=== PATIENT | female | born 1985 | race African-American/Black ===

== ENCOUNTER 2016-05-26 19:43 | Emergency (ER) | payer OTHER, MEDICAID ==
[2016-05-26] MEDS ORDERED: OXYCODONE-ACETAMINOPHEN 5-325 MG TABLET PO ONE (19:52)
--- NOTE | 2016-05-26 19:55 | ER Document Report ---
ED Medical Screen (RME) - General Stated Complaint: LEFT WRIST BURN Notes: 31 yo female c/o burn to left wrist from hot tea. + erythema and sloughing to dorsal wrist TRAVEL OUTSIDE OF THE [place] IN LAST 30 DAYS: No - Related Data Allergies/Adverse Reactions: diphenhydramine HCl [From Benadryl] Adverse Reaction (Verified 01/09/16 12:29) increses reaction of what it was taken for Bee stings Allergy (Severe, Uncoded 02/20/16 12:13) Hives, swelling cherries Allergy (Uncoded 02/20/16 12:13) hives/itch, throat closes Past Medical History - Social History Family history: Reviewed & Not Pertinent - Past Medical History Cardiac Medical History: Denies: Hx Coronary Artery Disease, Hx Heart Attack, Hx Hypertension - Low Pulmonary Medical History: Denies: Hx Asthma, Hx Bronchitis, Hx COPD, Hx Pneumonia Neurological Medical History: Reports: Hx Migraine. Denies: Hx Cerebrovascular Accident, Hx Seizures Renal/ Medical History: Reports: Hx Ovarian Cysts Musculoskeltal Medical History: Denies Hx Arthritis, Reports Hx Fibromyalgia Past Surgical History: Reports: Hx Breast Surgery - L lumpectomy, Hx Section - x 2, Hx Cholecystectomy, Hx Gynecologic Surgery - LEEPx4, Hx Oral Surgery - wisdom teeth, Hx Tonsillectomy, Hx Tubal Ligation - Immunizations Immunizations up to date: Yes Hx Diphtheria, Pertussis, Tetanus Vaccination: Yes
[2016-05-26] MEDS ORDERED: MORPHINE SULFATE 10 MG/ML INJ IM ONE (21:03)
[2016-05-26] MEDS ORDERED: DIPH/PERTUSS(ACELL)/TETANUS VAC/PF 0.5 ML SYR (>=10YO) IM ONE (21:03)
[2016-05-26] MEDS ORDERED: SILVER SULFADIAZINE 1% CREAM 25 GM TP ONE (21:03)
--- NOTE | 2016-05-26 21:03 | ER Document Report ---
ED Burn/Smoke/Toxic Fumes - General Chief Complaint: Burn Stated Complaint: LEFT WRIST BURN Time seen by provider: 21:03 Mode of Arrival: Ambulatory Information source: Patient TRAVEL OUTSIDE OF THE [place] 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, when it came loose causing hot liquid to spill on her left wrist, she denies injury or pain elsewhere, last tetanus shot is unknown, patient denies any numbness or tingling to the extremity distally - Related Data Allergies/Adverse Reactions: diphenhydramine HCl [From Benadryl] Adverse Reaction (Verified 01/09/16 12:29) increses reaction of what it was taken for Bee stings Allergy (Severe, Uncoded 02/20/16 12:13) Hives, swelling cherries Allergy (Uncoded 02/20/16 12:13) hives/itch, throat closes Past Medical History - General Information source: Patient - Social History Smoking Status: Unknown if Ever Smoked Family History: Reviewed & Not Pertinent, Malignancy - Strong family history breast cancer Patient has suicidal ideation: No Patient has homicidal ideation: No - Past Medical History Cardiac Medical History: Denies: Hx Coronary Artery Disease, Hx Heart Attack, Hx Hypertension - Low Pulmonary Medical History: Denies: Hx Asthma, Hx Bronchitis, Hx COPD, Hx Pneumonia Neurological Medical History: Reports: Hx Migraine. Denies: Hx Cerebrovascular Accident, Hx Seizures Renal/ Medical History: Reports: Hx Ovarian Cysts. Denies: Hx Peritoneal Dialysis Musculoskeltal Medical History: Denies Hx Arthritis, Reports Hx Fibromyalgia Past Surgical History: Reports: Hx Breast Surgery - L lumpectomy, Hx Section - x 2, Hx Cholecystectomy, Hx Gynecologic Surgery - LEEPx4, Hx Oral Surgery - wisdom teeth, Hx Tonsillectomy, Hx Tubal Ligation - Immunizations Immunizations up to date: Yes Hx Diphtheria, Pertussis, Tetanus Vaccination: Yes Review of Systems - Review of Systems Constitutional: No symptoms reported EENT: No symptoms reported Cardiovascular: No symptoms reported Respiratory: No symptoms reported Gastrointestinal: No symptoms reported Genitourinary: No symptoms reported Female Genitourinary: No symptoms reported Musculoskeletal: No symptoms reported Skin: See HPI Hematologic/Lymphatic: No symptoms reported Neurological/Psychological: No symptoms reported -: Yes All other systems reviewed and negative Physical Exam - Vital signs Vitals: Temp Pulse Resp BP Pulse Ox 98.0 F 104 H 19 139/103 H 100 05/26/16 20:07 05/26/16 20:07 05/26/16 20:07 05/26/16 20:07 05/26/16 20:07 Interpretation: Normal - Notes Notes: - General General appearance: Appears well, Alert In distress: None - HEENT Head: Normocephalic, Atraumatic Eyes: Normal Conjunctiva: Normal Extraocular movements intact: Yes Eyelashes: Normal Pupils: PERRL - Respiratory Respiratory status: No respiratory distress - Cardiovascular Rhythm: Regular - Abdominal Inspection: Normal - Back Back: Normal - Extremities General upper extremity: Left wrist with first degree cherry to the dorsal surface with slight extension to the ventral surface, 2+ radial pulses, distal sensation and motor is intact, no decreased range of motion, patient does have a 3 cm area of blistering over the central dorsal wrist, consistent with a second-degree burn General lower extremity: Normal inspection - Neurological Neuro grossly intact: Yes Orientation: AAOx4 [place] Coma Scale Eye Opening: Spontaneous Shae Coma Scale Verbal: Oriented [place] Coma Scale Motor: Obeys Commands Shae Coma Scale Total: 15 - Psychological Associated symptoms: Normal affect, Normal mood - Skin Skin Temperature: Warm Skin Moisture: Dry Skin Color: Normal Course - Re-evaluation Re-evalutation: 05/26/16 21:47 Patient reports adequate pain relief, she was provided with Silvadene cream and pain medication to go as well as wound care instructions, advised to follow-up at [facility] burn [facility] clinic within the next 2-3 days, or return if symptoms worsen , patient acknowledges understanding and agreement with this plan 05/27/16 03:26 - Vital Signs Vital signs: Temp Pulse Resp BP Pulse Ox 97.9 F 81 17 126/74 H 99 05/26/16 22:38 05/26/16 22:38 05/26/16 22:38 05/26/16 22:38 05/26/16 22:38 Discharge - Discharge Clinical Impression: Second degree burn of wrist First degree burn of wrist Qualifiers: Encounter type: initial encounter Laterality: left Qualified Code(s): T23.172A - Burn of first degree of left wrist, initial encounter Condition: Stable Disposition: HOME, SELF-CARE Instructions: Cherry ([facility]), Oral Narcotic Medication ([facility]), Silvadene Cream ([facility] ), Soap Cleansing ([facility]), Tetanus Immunization Given ([facility]) Additional Instructions: Follow-up with the burn care clinic at [facility] in the next 1-2 days. Return to the emergency room immediately if symptoms worsen or any additional concerns. Gently rinse with warm water and soap twice daily and apply Silvadene cream 2-3 times daily. Prescriptions: Oxycodone HCl/Acetaminophen [Percocet 5-325 mg Tablet] 1 - 2 tab PO ASDIR PRN # 20 tablet PRN Reason: Silver Sulfadiazine [Silvadene 1% Cream 50 gm Tube] 1 applic TP BID #50 grams Forms: Return to Work Referrals: DONNA GUTIERREZ MD [Primary Care Provider] - Follow up as needed
[2016-05-26] MEDS ORDERED: HYDROCODONE/ACETAMINOPHEN 5-325 MG 6 TAB/DSPK PO PRN (21:49)
[2016-05-26 22:53] VITALS: BP 126/74
== END 2016-05-26 22:38 | disposition home or self-care (01) ==
LOC: ER 19:43
DX: T23.272A Burn of second degree of left wrist, initial encounter (principal); T31.0 Burns involving less than 10% of body surface; X12.XXXA Contact with other hot fluids, initial encounter; Y93.89 Activity, other specified; Y99.0 Civilian activity done for income or pay; Z91.030 Bee allergy status; Z91.018 Allergy to other foods
CPT/HCPCS: 99283; 96372; 90471; 90715; J2270

== ENCOUNTER 2016-10-28 15:51 | Emergency (ER) | payer MEDICAID, OTHER ==
[2016-10-28 16:06] VITALS: BP 127/76
[2016-10-28] MEDS ORDERED: ALBUTEROL SULFATE 0.083% NEB 2.5 MG/3 ML AMPUL NEB ONE ×2 (17:00→18:34)
--- NOTE | 2016-10-28 17:28 | RADIOLOGY REPORT (SQ) ---
EXAM DESCRIPTION: CHEST PA/LAT COMPLETED DATE/TIME: 10/28/2016 5:09 pm REASON FOR STUDY: cough COMPARISON: 04/16/2015 EXAM PARAMETERS: NUMBER OF VIEWS: two views TECHNIQUE: Digital Frontal and Lateral radiographic views of the chest acquired. RADIATION DOSE: NA LIMITATIONS: none FINDINGS: LUNGS AND PLEURA: No opacities, masses or pneumothorax. No pleural effusion. MEDIASTINUM AND HILAR STRUCTURES: No masses or contour abnormalities. HEART AND VASCULAR STRUCTURES: Heart normal size. No evidence for failure. BONES: No acute findings. HARDWARE: None in the chest. OTHER: No other significant finding. IMPRESSION: NO SIGNIFICANT RADIOGRAPHIC FINDING IN THE CHEST. TECHNICAL DOCUMENTATION: JOB ID: [id number] [employer]- All Rights Reserved
[2016-10-28] MEDS ORDERED: ALBUTEROL SULFATE HFA (90 MCG/PUFF) 8 GM MDI (1 MDI/ER DISP) IH PRN (19:38)
--- NOTE | 2016-10-28 19:38 | ER Document Report ---
HPI - HPI Patient complains to provider of: cough Onset: Last week Onset/Duration: Gradual Pain Level: Denies Context: patient is a 31 year old female with cough. d/g with URI on augmentin and prednisone since tuesday, afebrile Associated Symptoms: Headache, Hoarseness, Sinus pain/drainage, Sore throat. denies: Chills, Productive cough, Fever, Hurts to breath, Nausea, Vomiting, Shortness of breath Exacerbated by: Coughing Relieved by: Remaining still - REPRODUCTIVE Reproductive: DENIES: : - DERM Skin Color: Normal Past Medical History - Social History Smoking Status: Current Every Day Smoker Chew tobacco use (# tins/day): No Frequency of alcohol use: None Drug Abuse: None Family History: Reviewed & Not Pertinent, Malignancy - Strong family history breast cancer Patient has suicidal ideation: No Patient has homicidal ideation: No - Past Medical History Cardiac Medical History: Denies: Hx Coronary Artery Disease, Hx Heart Attack, Hx Hypertension - Low Pulmonary Medical History: Denies: Hx Asthma, Hx Bronchitis, Hx COPD, Hx Pneumonia Neurological Medical History: Reports: Hx Migraine. Denies: Hx Cerebrovascular Accident, Hx Seizures Renal/ Medical History: Reports: Hx Ovarian Cysts. Denies: Hx Peritoneal Dialysis Musculoskeltal Medical History: Denies Hx Arthritis, Reports Hx Fibromyalgia Past Surgical History: Reports: Hx Breast Surgery - L lumpectomy, Hx Section - x 2, Hx Cholecystectomy, Hx Gynecologic Surgery - LEEPx4, Hx Oral Surgery - wisdom teeth, Hx Tonsillectomy, Hx Tubal Ligation - Immunizations Immunizations up to date: Yes Hx Diphtheria, Pertussis, Tetanus Vaccination: Yes - 2017 Vertical Provider Document - CONSTITUTIONAL Agree With Documented VS: Yes Exam Limitations: No Limitations General Appearance: WD/WN, No Apparent Distress Notes: PHYSICAL EXAM GENERAL: Alert, interacts well. HEAD: Normocephalic, atraumatic. EYES: Pupils equal, round, and reactive to light. Extraocular movements intact. ENT: Oral mucosa moist, tongue midline. NECK: Full range of motion. Supple. Trachea midline. LUNGS: Expiratory wheezes noted bilaterally without rales, or rhonchi. No respiratory distress. HEART: Regular rate and rhythm. No murmurs, gallops, or rubs. ABDOMEN: Soft, nondistended, nontender. No guarding, rebound, or rigidity.. Bowel sounds present in all 4 quadrants. EXTREMITIES: Moves all 4 extremities spontaneously. No edema, radial and dorsalis pedis pulses 2/4 bilaterally. No cyanosis. NEUROLOGICAL: Alert and oriented x4. Normal speech. PSYCH: Normal affect, normal mood. SKIN: Warm, dry, normal turgor. No rashes or lesions noted. - INFECTION CONTROL TRAVEL OUTSIDE OF THE [place] IN LAST 30 DAYS: No - RESPIRATORY O2 Sat by Pulse Oximetry: 98 Course - Re-evaluation Re-evalutation: 10/28/16 22:23 Is a 31-year-old female hemodynamic stable, no acute distress and afebrile. Patient responded well to breathing treatments with markedly pain in her wheezing and shortness of breath. Patient discharged home on albuterol inhaler and discussion for strict return precautions. Patient expressed understanding and stable for discharge home - Vital Signs Vital signs: Temp Pulse Resp BP Pulse Ox 98.5 F 96 20 127/76 H 98 10/28/16 15:59 10/28/16 15:59 10/28/16 15:59 10/28/16 15:59 10/28/16 15:59 - Diagnostic Test Radiology reviewed: Image reviewed, Reports reviewed Discharge - Discharge Clinical Impression: Bronchitis Condition: Good Disposition: HOME, SELF-CARE Instructions: Bronchitis ([facility]) Additional Instructions: Follow up with your Primary care provider next week. Forms: Return to Work
== END 2016-10-28 20:01 | disposition home or self-care (01) ==
LOC: ER 15:51
DX: J40 Bronchitis, not specified as acute or chronic (principal); J06.9 Acute upper respiratory infection, unspecified; R05 Cough; R51 Headache; R49.0 Dysphonia; R06.2 Wheezing; R06.02 Shortness of breath; J02.9 Acute pharyngitis, unspecified; J34.89 Other specified disorders of nose and nasal sinuses; F17.200 Nicotine dependence, unspecified, uncomplicated
CPT/HCPCS: 94640 ×2; 99283; 71020; J3490

== ENCOUNTER 2017-02-17 21:12 | Emergency (ER) | payer MEDICAID ==
[2017-02-17 22:55] LABS: APPEARANCE,URINE CLEAR; BILIRUBIN,URINE NEGATIVE (NEGATIVE); GLUCOSE, URINE NEGATIVE (NEGATIVE); KETONES,URINE TRACE mg/dL (NEGATIVE); LEUKOCYTE ESTERASE,URINE NEGATIVE (NEGATIVE); NITRITE,URINE NEGATIVE (NEGATIVE); PROTEIN,URINE NEGATIVE (NEGATIVE); URINE SPECIFIC GRAVITY 1.003; UROBILINOGEN,URINE NEGATIVE mg/dL (<2.0)
[2017-02-17] MEDS ORDERED: LORAZEPAM 0.5 MG TABLET PO ONE (23:14)
--- NOTE | 2017-02-17 23:14 | ER Document Report ---
ED Syncope and Near Syncope - General Chief Complaint: Syncope Stated Complaint: PASSED OUT Time Seen by Provider: 02/17/17 22:58 Notes: Patient is a 32-year-old female comes emergency department for chief complaint of syncope. She states that she was in the emergency department and she was told by her significant other that he has HIV, she states that she passed out and woke up being supported by her friends. Friends are at bedside, they states she did not hit her head. Patient states she has passed out before. Patient states that she feels fine except that she feels upset. She denies SI or HI TRAVEL OUTSIDE OF THE [place] IN LAST 30 DAYS: No - Related Data Allergies/Adverse Reactions: diphenhydramine HCl [From Benadryl] Adverse Reaction (Verified 10/28/16 16:03) increses reaction of what it was taken for Bee stings Allergy (Severe, Uncoded 02/20/16 12:13) Hives, swelling cherries Allergy (Uncoded 02/20/16 12:13) hives/itch, throat closes Past Medical History - General Information source: Patient - Social History Smoking Status: Never Smoker Frequency of alcohol use: None Drug Abuse: None Lives with: Family Family History: Reviewed & Not Pertinent, Malignancy - Strong family history breast cancer Patient has suicidal ideation: No Patient has homicidal ideation: No - Past Medical History Cardiac Medical History: Denies: Hx Coronary Artery Disease, Hx Heart Attack, Hx Hypertension - Low Pulmonary Medical History: Denies: Hx Asthma, Hx Bronchitis, Hx COPD, Hx Pneumonia Neurological Medical History: Reports: Hx Migraine. Denies: Hx Cerebrovascular Accident, Hx Seizures Renal/ Medical History: Reports: Hx Ovarian Cysts. Denies: Hx Peritoneal Dialysis Musculoskeltal Medical History: Denies Hx Arthritis, Reports Hx Fibromyalgia Past Surgical History: Reports: Hx Breast Surgery - L lumpectomy, Hx Section - x 2, Hx Cholecystectomy, Hx Gynecologic Surgery - LEEPx4, Hx Oral Surgery - wisdom teeth, Hx Tonsillectomy, Hx Tubal Ligation - Immunizations Immunizations up to date: Yes Hx Diphtheria, Pertussis, Tetanus Vaccination: Yes - 2016 Review of Systems - Review of Systems Constitutional: No symptoms reported EENT: No symptoms reported Cardiovascular: See HPI Respiratory: No symptoms reported Gastrointestinal: No symptoms reported Genitourinary: No symptoms reported Female Genitourinary: No symptoms reported Musculoskeletal: No symptoms reported Skin: No symptoms reported Hematologic/Lymphatic: No symptoms reported Neurological/Psychological: See HPI Physical Exam - Vital signs Vitals: Temp Pulse Resp BP Pulse Ox 98.5 F 83 16 121/75 100 02/17/17 22:06 02/17/17 22:06 02/17/17 22:06 02/17/17 22:06 02/17/17 22:06 Interpretation: Normal - General General appearance: Appears well, Alert In distress: None - patient has some dried tears on her face but is in no distress - HEENT Head: Normocephalic, Atraumatic Eyes: Normal Conjunctiva: Normal Extraocular movements intact: Yes Eyelashes: Normal Pupils: PERRL Mouth/Lips: Normal Mucous membranes: Normal Pharynx: Normal Neck: Normal - Respiratory Respiratory status: No respiratory distress Chest status: Nontender Breath sounds: Normal. No: Decreased air movement, Wheezing Chest palpation: Normal - Cardiovascular Rhythm: Regular. No: Tachycardia Heart sounds: Normal auscultation, S1 appreciated, S2 appreciated Murmur: No - Abdominal Inspection: Normal Distension: No distension Bowel sounds: Normal Tenderness: Nontender. No: Tender, Guarding Organomegaly: No organomegaly - Back Back: Normal, Nontender - Extremities General upper extremity: Normal inspection, Nontender, Normal color, Normal ROM , Normal temperature General lower extremity: Normal inspection, Nontender, Normal color, Normal ROM , Normal temperature, Normal weight bearing. No: Dutch's sign - Neurological Neuro grossly intact: Yes Cognition: Normal Orientation: AAOx4 Shae Coma Scale Eye Opening: Spontaneous Shae Coma Scale Verbal: Oriented [place] Coma Scale Motor: Obeys Commands [place] Coma Scale Total: 15 Speech: Normal Motor strength normal: LUE, RUE, LLE, RLE Sensory: Normal - Psychological Associated symptoms: Normal affect, Normal mood - Skin Skin Temperature: Warm Skin Moisture: Dry Skin Color: Normal Course - Re-evaluation Re-evalutation: EKG shows sinus rhythm with normal LA interval, no arrhythmia, no ischemic findings. CBC shows mild microcytic anemia, chemistry unremarkable. Vital signs unremarkable. Patient well-appearing and asymptomatic. She did have a stressor causing an acute reaction and her syncope. Very low suspicion of any emergent concerning abnormality for chronic condition putting her at risk. Patient is asking to leave. She denies SI or HI. She has friends at bedside who are taking her home. Discussed return precautions, patient states understanding and agreement. - Vital Signs Vital signs: Temp Pulse Resp BP Pulse Ox 98.5 F 83 16 125/76 100 02/17/17 22:06 02/17/17 22:06 02/17/17 22:06 02/18/17 00:46 02/17/17 22:06 - Laboratory Result Diagrams: 02/17/17 23:15 02/17/17 23:15 Laboratory results interpreted by me: 02/17/17 02/17/17 22:30 23:15 Hgb 11.6 L Hct 35.6 L MCV 74 L MCH 24.0 L RDW 17.1 H Seg Neutrophils % 78.1 H Urine Ketones TRACE H Urine Blood SMALL H Discharge - Discharge Clinical Impression: Syncope Qualifiers: Syncope type: unspecified Qualified Code(s): R55 - Syncope and collapse Condition: Stable Disposition: HOME, SELF-CARE Additional Instructions: Your workup shows mild iron deficiency anemia, increase iron in your diet, follow-up with primary care. No other concerning abdomen is noted on your workup today. Return to the emergency department for any concerning symptoms, see additional details below. Syncope (fainting or near-fainting) can occur from many different health problems. Or it can be a simple fainting spell requiring no treatment. It is safe for you to go home, but further evaluation will likely be necessary. Your work-up may include tests for internal bleeding, heart disease, medication problems, or near-strokes. Tests are not always required, however, depending on the nature of your problem. The warning signs of an impending faint include: dizziness, lightheadedness , nausea, hot flashes, tingling, and weakness. If this happens, lay down and put your feet up, then wait until all of these symptoms have passed before standing up again. If these episodes become recurrent, or if you develop chest pain, heart palpitations, mental confusion, blurred vision, or headache, then you should call the physician, or go to the emergency room.
[2017-02-17 23:41] LABS: ABSOLUTE LYMPHOCYTES (AUTO) 1.5 10^3/uL (0.5-4.7); ABSOLUTE MONOCYTES (AUTO) 0.6 10^3/uL (0.1-1.4); ABSOLUTE NEUT (AUTO) 7.7 10^3/uL (1.7-8.2); BASOPHILS % (AUTO) 0.5 % (0-2); EOSINOPHILS % (AUTO) 0.5 % (0-6); HEMATOCRIT 35.6 % (36.0-47.0); HEMOGLOBIN 11.6 g/dL (12.0-15.5); HGB HCT DIFFERENCE -0.8; LYMPHOCYTES % (AUTO) 15.3 % (13-45); MEAN CORPUSCULAR HGB CONC 32.5 g/dL (32.0-36.0); MEAN CORPUSCULAR VOLUME 74 fl (80-97); MONOCYTES % (AUTO) 5.6 % (3-13); RED BLOOD COUNT 4.83 10^6/uL (3.72-5.28); RED CELL DISTRIBUTION WIDTH 17.1 % (11.5-14.0); SEGMENTED NEUTROPHILS % (AUTO) 78.1 % (42-78); WHITE BLOOD COUNT 9.9 10^3/uL (4.0-10.5)
[2017-02-17 23:52] LABS: ALANINE AMINOTRANSFERASE 26 U/L (9-52); ALBUMIN 4.6 g/dL (3.5-5.0); ALKALINE PHOSPHATASE 49 U/L (38-126); ANION GAP 10 (5-19); ASPARTATE AMINO TRANSFERASE 20 U/L (14-36); BILIRUBIN,DIRECT 0.3 mg/dL (0.0-0.4); BILIRUBIN,TOTAL 0.3 mg/dL (0.2-1.3); BLOOD UREA NITROGEN 8 mg/dL (7-20); CALCIUM 9.8 mg/dL (8.4-10.2); CARBON DIOXIDE 25 mmol/L (22-30); CHLORIDE 106 mmol/L (98-107); CREATININE RESULT 0.69 mg/dL (0.52-1.25); GLUCOSE 83 mg/dL (75-110); POTASSIUM 3.8 mmol/L (3.6-5.0); SODIUM 141.4 mmol/L (137-145); TOTAL PROTEIN 7.5 g/dL (6.3-8.2)
[2017-02-18 00:48] VITALS: BP 125/76
--- NOTE | 2017-02-18 10:59 | EKG REPORT ---
SEVERITY:- NORMAL ECG - SINUS RHYTHM : Confirmed by: Lindsey Sidhu MD 18-Feb-2017 10:58:17
== END 2017-02-18 00:46 | disposition home or self-care (01) ==
LOC: ER 21:12
DX: R55 Syncope and collapse (principal); Z21 Asymptomatic human immunodeficiency virus [HIV] infection status; Z91.030 Bee allergy status; Z90.49 Acquired absence of other specified parts of digestive tract
CPT/HCPCS: 36415; 80053; 81001; 81025; 85025; 93005; 93010; 99284

== ENCOUNTER 2017-02-18 12:56 | Emergency (ER) | payer MEDICAID ==
[2017-02-18] MEDS ORDERED: NORMAL SALINE 1000 ML 1,000 ML IV ONE (13:43)
--- NOTE | 2017-02-18 13:43 | ER Document Report ---
ED General - General Chief Complaint: Syncope Stated Complaint: POSSIBLE SYNCOPE Time Seen by Provider: 02/18/17 13:33 Mode of Arrival: Ambulatory Information source: Patient Notes: 32-year-old female presents with concerns for syncopal episode. Patient notes she found that her cheated on her yesterday and had contracted HIV. When patient was told about this yesterday she had a syncopal episode was observed in the ED at that time. Patient notes today she was having discussion with her again was on the line store felt sweaty dizzy lightheaded and may have passed out and vomited TRAVEL OUTSIDE OF THE [place] IN LAST 30 DAYS: No - HPI Onset: Just prior to arrival Onset/Duration: Sudden Quality of pain: No pain Severity: Mild Pain Level: Denies Associated symptoms: Other Exacerbated by: Denies Relieved by: Denies Similar symptoms previously: Yes Recently seen / treated by doctor: Yes - Related Data Allergies/Adverse Reactions: Bee stings Allergy (Severe, Uncoded 02/18/17 13:09) Hives, swelling cherries Allergy (Uncoded 02/18/17 13:09) hives/itch, throat closes Home Medications: Current Home Medications Amitriptyline HCl 50 mg PO DAILY 02/18/17 [History] Citalopram Hydrobromide [Celexa 20 mg Tablet] 20 mg PO DAILY 02/18/17 [History] Pregabalin [Lyrica 100 mg Capsule] 100 mg PO TID 02/18/17 [History] Trazodone HCl 50 mg PO DAILY 02/18/17 [History] Past Medical History - Social History Smoking Status: Never Smoker Cigarette use (# per day): No Chew tobacco use (# tins/day): No Smoking Education Provided: No Family History: Reviewed & Not Pertinent, Malignancy - Strong family history breast cancer Patient has suicidal ideation: No Patient has homicidal ideation: No - Past Medical History Cardiac Medical History: Denies: Hx Coronary Artery Disease, Hx Heart Attack, Hx Hypertension - Low Pulmonary Medical History: Denies: Hx Asthma, Hx Bronchitis, Hx COPD, Hx Pneumonia Neurological Medical History: Reports: Hx Migraine. Denies: Hx Cerebrovascular Accident, Hx Seizures Renal/ Medical History: Reports: Hx Ovarian Cysts. Denies: Hx Peritoneal Dialysis Musculoskeltal Medical History: Denies Hx Arthritis, Reports Hx Fibromyalgia Past Surgical History: Reports: Hx Breast Surgery - L lumpectomy, Hx Section - x 2, Hx Cholecystectomy, Hx Gynecologic Surgery - LEEPx4, Hx Oral Surgery - wisdom teeth, Hx Tonsillectomy, Hx Tubal Ligation - Immunizations Immunizations up to date: Yes Hx Diphtheria, Pertussis, Tetanus Vaccination: Yes - 2016 Review of Systems - Review of Systems Notes: REVIEW OF SYSTEMS: CONSTITUTIONAL : Denies fever, chills, or sweats. Denies recent illness. EENT: Denies eye, ear, throat, or mouth pain or symptoms. Denies nasal or sinus congestion or discharge. Denies throat, tongue, or mouth swelling or difficulty swallowing. CARDIOVASCULAR: Denies chest pain. Denies palpitations or racing or irregular heart beat. Denies ankle edema. RESPIRATORY: Denies cough, cold, or chest congestion. Denies shortness of breath, difficulty breathing, or wheezing. GASTROINTESTINAL: Denies abdominal pain or distention. Denies nausea, vomiting , or diarrhea. Denies blood in vomitus, stools, or per rectum. Denies black, tarry stools. Denies constipation. GENITOURINARY: Denies difficulty urinating, painful urination, burning, frequency, blood in urine, or discharge. MUSCULOSKELETAL: Denies back or neck pain or stiffness. Denies joint pain or swelling. SKIN: Denies rash, lesions or sores. HEMATOLOGIC : Denies easy bruising or bleeding. LYMPHATIC: Denies swollen, enlarged glands. NEUROLOGICAL: admits ot passing out PSYCHIATRIC: admits to anxiety and stress ALL OTHER SYSTEMS REVIEWED AND NEGATIVE. Dictation was performed using [employer] voice recognition software PHYSICAL EXAMINATION: GENERAL: Well-appearing, well-nourished and in no acute distress. HEAD: Atraumatic, normocephalic. EYES: Pupils equal round and reactive to light, extraocular movements intact, sclera anicteric, conjunctiva are normal. ENT: Nares patent, oropharynx clear without exudates. Moist mucous membranes. NECK: Normal range of motion, supple without lymphadenopathy LUNGS: Breath sounds clear to auscultation bilaterally and equal. No wheezes rales or rhonchi. HEART: Regular rate and rhythm without murmurs ABDOMEN: Soft, nontender, nondistended abdomen. No guarding, no rebound. No masses appreciated. Musculoskeletal: Normal range of motion, no pitting or edema. No cyanosis. NEUROLOGICAL: Cranial nerves grossly intact. Normal speech, normal gait. Normal sensory, motor exams PSYCH: tearful SKIN: Warm, Dry, normal turgor, no rashes or lesions noted. Physical Exam - Vital signs Vitals: Temp Pulse Resp BP Pulse Ox 98.2 F 89 16 107/69 100 02/18/17 13:07 02/18/17 13:07 02/18/17 13:07 02/18/17 13:07 02/18/17 13:07 Course - Re-evaluation Re-evalutation: 02/18/17 13:52 I believe patient's syncope is secondary to the stress from finding out husbands hiv status 02/18/17 14:42 Patient otherwise looks well will be discharged home has been watched in the emergency department obviously patient is quite distressed from the knowledge that she has recently obtained After performing a Medical Screening Examination, I estimate there is LOW risk for INTRACRANIAL HEMORRHAGE, ISCHEMIC CVA, MALIGNANT DYSRHYTHMIA, ACUTE CORONARY SYNDROME, MENINGITIS, PULMONARY EMBOLISM, or SEPSIS thus I consider the discharge disposition reasonable. I have reevaluated this patient multiple times and no significant life threatening changes are noted. The patient and I have discussed the diagnosis and risks, and we agree with discharging home with close follow-up with the understanding that symptoms and presentations can change. We also discussed returning to the Emergency Department immediately if new or worsening symptoms occur. We have discussed the symptoms which are most concerning (e.g., changing or worsening pain, weakness, vomiting, fever) that necessitate immediate return. - Vital Signs Vital signs: Temp Pulse Resp BP Pulse Ox 98.2 F 89 16 107/69 100 02/18/17 13:07 02/18/17 13:07 02/18/17 13:07 02/18/17 13:07 02/18/17 13:07 - EKG Interpretation by Me EKG shows normal: Sinus rhythm, [place], Intervals, QRS Complexes Discharge - Discharge Clinical Impression: Syncope Qualifiers: Syncope type: unspecified Qualified Code(s): R55 - Syncope and collapse Condition: Stable Disposition: HOME, SELF-CARE Instructions: Syncopal Episode ([facility]) Additional Instructions: Follow up with your physician tomorrow for further care or return to the ED IMMEDIATELY if symptoms worsen or new concerns occur. If you cannot afford to follow up with your primary care physician a list of low cost clinics have been provided at the end of your discharge papers as well.
[2017-02-18 15:07] VITALS: BP 114/71
== END 2017-02-18 15:08 | disposition home or self-care (01) ==
LOC: ER 12:56
DX: R55 Syncope and collapse (principal); R42 Dizziness and giddiness; R11.10 Vomiting, unspecified; Z79.899 Other long term (current) drug therapy
CPT/HCPCS: 99284; 96360; J7030

== ENCOUNTER → 2017-08-11 | Outpatient (CLI) | payer MEDICAID ==
--- NOTE | 2017-08-11 16:51 | RADIOLOGY REPORT (SQ) ---
EXAM DESCRIPTION: FINGERS LEFT COMPLETED DATE/TIME: 08/11/2017 4:42 pm REASON FOR STUDY: S69.92XA INJURY OF LEFT FINGER, INITIAL ENCOUNTER COMPARISON: None. NUMBER OF VIEWS: Three views. TECHNIQUE: AP, lateral, and oblique images acquired of the left fifth finger. LIMITATIONS: None. FINDINGS: MINERALIZATION: Normal. BONES: No acute fracture or dislocation. No worrisome bone lesions. SOFT TISSUES: No soft tissue swelling. No foreign body. OTHER: No other significant finding. IMPRESSION: NO RADIOGRAPHIC EVIDENCE OF ACUTE INJURY. COMMENT: SITE OF TRAUMA/COMPLAINT MARKED/STAMP COMPLETED: YES. TECHNICAL DOCUMENTATION: JOB ID: [id number] [employer]- All Rights Reserved Reading location - IP/workstation name: [email or web address]
== END ==
LOC: OD 16:16
PROVIDERS: ATTEND Nurse Practitioner Acute Care
DX: S69.92XA Unspecified injury of left wrist, hand and finger(s), initial encounter (principal); X58.XXXA Exposure to other specified factors, initial encounter

== ENCOUNTER 2017-10-05 14:18 | Emergency (ER) | payer MEDICAID ==
[2017-10-05 14:41] VITALS: BP 110/62
[2017-10-05] MEDS ORDERED: BENZONATATE 100 MG CAPSULE PO ONE (14:47)
--- NOTE | 2017-10-05 14:50 | ER Document Report ---
ED General - General Chief Complaint: Chest Congestion Stated Complaint: COUGH,CONGESTION,CHILLS Time Seen by Provider: 10/05/17 14:40 Notes: 32-year-old female here with complaints of cough congestion runny nose sore throat ongoing for the past 3 days. She has tried [id number] cold and flu medications for the symptoms. She denies any other symptoms. Eating drinking urinating defecating per usual. She believes that she has been in contact with many sick contacts. Immunizations up-to-date. TRAVEL OUTSIDE OF THE [place] IN LAST 30 DAYS: No - Related Data Allergies/Adverse Reactions: Bee stings Allergy (Severe, Uncoded 10/05/17 14:20) Hives, swelling cherries Allergy (Uncoded 10/05/17 14:20) hives/itch, throat closes Past Medical History - Social History Smoking Status: Never Smoker Chew tobacco use (# tins/day): No Frequency of alcohol use: Occasional Drug Abuse: None Family History: Reviewed & Not Pertinent, Malignancy - Strong family history breast cancer Patient has suicidal ideation: No Patient has homicidal ideation: No - Past Medical History Cardiac Medical History: Denies: Hx Coronary Artery Disease, Hx Heart Attack, Hx Hypertension - Low Pulmonary Medical History: Denies: Hx Asthma, Hx Bronchitis, Hx COPD, Hx Pneumonia Neurological Medical History: Reports: Hx Migraine. Denies: Hx Cerebrovascular Accident, Hx Seizures Renal/ Medical History: Reports: Hx Ovarian Cysts. Denies: Hx Peritoneal Dialysis Musculoskeltal Medical History: Denies Hx Arthritis, Reports Hx Fibromyalgia Past Surgical History: Reports: Hx Breast Surgery - L lumpectomy, Hx Section - x 2, Hx Cholecystectomy, Hx Gynecologic Surgery - LEEPx4, Hx Oral Surgery - wisdom teeth, Hx Tonsillectomy, Hx Tubal Ligation - Immunizations Immunizations up to date: Yes Hx Diphtheria, Pertussis, Tetanus Vaccination: Yes - 2017 Review of Systems - Review of Systems Notes: See history of present illness for pertinent positive review of systems; otherwise all review of systems have been reviewed and are negative Physical Exam - Vital signs Vitals: Temp Pulse Resp BP Pulse Ox 98.7 F 78 18 110/62 100 10/05/17 14:39 10/05/17 14:39 10/05/17 14:39 10/05/17 14:39 10/05/17 14:39 - Notes Notes: PHYSICAL EXAMINATION: GENERAL: Well-appearing and in no acute distress. HEAD: Atraumatic, normocephalic. EYES: Pupils equal round and reactive to light, extraocular movements intact, sclera anicteric, conjunctiva are normal. ENT: nares patent, oropharynx minimal erythema without tonsillar swelling or exudates. Moist mucous membranes. NECK: Normal range of motion, supple without lymphadenopathy LUNGS: CTAB and equal. No wheezes rales or rhonchi. HEART: Regular rate and rhythm without murmurs ABDOMEN: Soft, no tenderness. No facial grimacing/wincing upon palpation. No guarding, no rebound. EXTREMITIES: Normal range of motion, no pitting edema. No cyanosis. NEUROLOGICAL: Cranial nerves grossly intact. Normal sensory/motor exams. PSYCH: Normal mood, normal affect. SKIN: Warm, Dry, normal turgor, no rashes or lesions noted Course - Re-evaluation Re-evalutation: 10/05/17 14:50 MEDICAL DECISION MAKING: Concern for upper respiratory infection, most likely viral Dose of Tessalon here and prescription Tessalon meloxicam and instructed on Cepacol spray for throat pain Instructed patient on fever control with Tylenol and/or (if applicable) Motrin Also discussed keeping hydrated with water or Gatorade/Pedialyte Instructed follow-up PCP next day or few Patient understands and agrees to the plan of care - Vital Signs Vital signs: Temp Pulse Resp BP Pulse Ox 98.7 F 78 18 110/62 100 10/05/17 14:39 10/05/17 14:39 10/05/17 14:39 10/05/17 14:39 10/05/17 14:39 Discharge - Discharge Clinical Impression: Acute URI Condition: Good Disposition: HOME, SELF-CARE Additional Instructions: You were seen in the emergency department at [facility]. You likely have an upper respiratory infection, most likely viral. Use Motrin and/ or Tylenol for fever control. You may use saline nasal spray for stuffy nose. Use Cepacol for throat pain. Stay hydrated. Please followup with your primary physician in the next few days for further management/evaluation. Please return to the emergency department for worsening of symptoms or any symptom that you deem to be concerning or life-threatening. Thank you for allowing us to be part of your care. This is your school/work note for your Emergency Department evaluation today. Prescriptions: Benzonatate [Tessalon Perles 100 mg Capsule] 100 mg PO Q8HP PRN #40 capsule PRN Reason: Meloxicam 7.5 mg PO DAILYP PRN #7 tablet PRN Reason:
== END 2017-10-05 14:53 | disposition home or self-care (01) ==
LOC: ER 14:18
DX: J06.9 Acute upper respiratory infection, unspecified (principal); R09.89 Other specified symptoms and signs involving the circulatory and respiratory systems; R05 Cough; R09.81 Nasal congestion
CPT/HCPCS: 99283; J3490

== ENCOUNTER 2017-12-12 23:01 | Emergency (ER) | payer SELFPAY ==
[2017-12-13] MEDS ORDERED: DEXAMETHASONE SOD PHOS INJ 10 MG/1 ML VIAL IM ONE (00:47)
[2017-12-13] MEDS ORDERED: DIAZEPAM 5 MG TABLET PO ONE (00:48)
[2017-12-13] MEDS ORDERED: KETOROLAC TROMETHAMINE INJ/PF 30 MG/1 ML SDV IM ONE (00:48)
--- NOTE | 2017-12-13 01:13 | ER Document Report ---
ED General - General Chief Complaint: Numbness of Arm Stated Complaint: NECK/ ARM NUMBNESS Time Seen by Provider: 12/13/17 00:42 Notes: Patient is a 32-year-old female with a history of fibromyalgia presents with complaint of pain and tightness in the muscles on the left side of her neck with numbness that goes all the way down her arm into her fingertips. It affects all her fingertips. She says that if a feeling as if her hands or arms feel asleep. She denies any weakness or diminishment in function of her hand or arm. She denies any trauma or injuries. She is supposed to be on medications for her fibromyalgia but she says she does not take them. She denies any recent fevers or infections. She denies any other focal numbness other than what is mentioned above. No difficulty talking or slurring of her speech. TRAVEL OUTSIDE OF THE [place] IN LAST 30 DAYS: No - Related Data Allergies/Adverse Reactions: Bee stings Allergy (Severe, Uncoded 10/05/17 14:20) Hives, swelling cherries Allergy (Uncoded 10/05/17 14:20) hives/itch, throat closes Past Medical History - Social History Smoking Status: Unknown if Ever Smoked Frequency of alcohol use: None Drug Abuse: None Family History: Reviewed & Not Pertinent, Malignancy - Strong family history breast cancer - Past Medical History Cardiac Medical History: Denies: Hx Coronary Artery Disease, Hx Heart Attack, Hx Hypertension - Low Pulmonary Medical History: Denies: Hx Asthma, Hx Bronchitis, Hx COPD, Hx Pneumonia Neurological Medical History: Reports: Hx Migraine. Denies: Hx Cerebrovascular Accident, Hx Seizures Renal/ Medical History: Reports: Hx Ovarian Cysts. Denies: Hx Peritoneal Dialysis Musculoskeletal Medical History: Denies Hx Arthritis, Reports Hx Fibromyalgia Past Surgical History: Reports: Hx Breast Surgery - L lumpectomy, Hx Section - x 2, Hx Cholecystectomy, Hx Gynecologic Surgery - LEEPx4, Hx Oral Surgery - wisdom teeth, Hx Tonsillectomy, Hx Tubal Ligation - Immunizations Immunizations up to date: Yes Hx Diphtheria, Pertussis, Tetanus Vaccination: Yes - 2016 Review of Systems - Review of Systems Notes: My Normal Review Basic REVIEW OF SYSTEMS: CONSTITUTIONAL : Denies fever, chills, or sweats. Denies recent illness. EENT: Denies eye, ear, throat, or mouth pain or symptoms. Denies nasal or sinus congestion. CARDIOVASCULAR: Denies chest pain. RESPIRATORY: Denies cough, cold, or chest congestion. Denies shortness of breath, difficulty breathing, or wheezing. MUSCULOSKELETAL: No weakness in extremities. Some numbness into left arm. SKIN: Denies rash or skin lesions. NEUROLOGICAL: Denies altered mental status or loss of consciousness. Denies headache. Denies weakness or paralysis or loss of use of either side. Denies problems with gait or speech. Denies sensory or motor loss. ALL OTHER SYSTEMS REVIEWED AND NEGATIVE. Physical Exam - Vital signs Vitals: Temp Pulse Resp BP Pulse Ox 98.4 F 71 18 112/69 99 12/12/17 23:13 12/12/17 23:13 12/12/17 23:13 12/12/17 23:13 12/12/17 23:13 - Notes Notes: General Appearance: Well nourished, alert, cooperative, no acute distress, mild obvious discomfort. Vitals: reviewed, See vital signs table. Head: no swelling or tenderness to the head Eyes: PERRL, EOMI, Conjuctiva clear Mouth: No decreasd moisture Neck: Supple, no midline cervical spine tenderness. Patient does have pinpoint pain to palpation over left paraspinal musculature that is at the level of around C6 and C5. She also has some pain to palpation over the medial trapezius muscle. Lungs: No wheezing, No rales, No rhonci, No accessory muscle use, good air exchange bilaterally. Heart: Normal rate, Regular rythm, No murmur, no rub Extremities: strength 5/5 in all extremities, good pulses in all extremities, no swelling or tenderness in the extremities, no edema. Skin: warm, dry, appropriate color, no rash Neuro: speech clear, oriented x 3, normal affect, responds appropriately to questions. Patient is good strength with in her left upper extremity and left hand. Patient is able to do full opposition of thumb with her other digits. She is able to feel me touch all fingers but says that she still has a sensation as if her hand is "asleep". Cranial nerves II through XII are intact. Course - Re-evaluation Re-evalutation: 12/13/17 02:33 Patient still has some mild tingling sensation into left hand but says her symptoms are significantly improved after medications I gave her. I suspect that her numbness is due to radiculopathy from her neck. Suspect this because the patient has no risk factors for stroke, she has no other symptoms suggesting stroke, she has pinpoint pain to palpation over the left cervical paraspinal musculature and trapezius muscle area suggesting that she is most likely having some impingement of the nerve in these locations. We will discharge home with medication informed to follow-up closely with her primary care doctor. Informed her if her symptoms are still going on after 2-3 days and she should talk to her doctor about possible referral for an EMG. Patient encouraged to return to ER if she has worsening of her symptoms, any weakness in her hand, if she has any further concerns. Patient agrees with plan will be discharged home. Dictation of this chart was performed using voice recognition software; therefore, there may be some unintended grammatical errors. - Vital Signs Vital signs: Temp Pulse Resp BP Pulse Ox 98.4 F 71 18 112/69 99 12/12/17 23:13 12/12/17 23:13 12/12/17 23:13 12/12/17 23:13 12/12/17 23:13 Discharge - Discharge Clinical Impression: Neck pain on left side, Paresthesia Condition: Good Disposition: HOME, SELF-CARE Additional Instructions: Please do not drive when you take the Valium. Please follow up closely with your primary care physician. please return to the ER immediately if you develop worsening numbness, any weakness in your hand, or if you feel that you are worsening in any way. Please Call your doctor for a follow up appointment this week and discuss having an EMG performed if your symptoms are not completely resolved in 2-3 days. Continue to take Ibuprofen 400mg every 6 hours as well. Prescriptions: Diazepam [Valium 5 mg Tablet] 5 mg PO BID #6 tablet
[2017-12-13 02:58] VITALS: BP 98/56
== END 2017-12-13 02:25 | disposition home or self-care (01) ==
LOC: ER 23:01
DX: R20.2 Paresthesia of skin (principal); R20.0 Anesthesia of skin; M79.7 Fibromyalgia; T50.906A Underdosing of unspecified drugs, medicaments and biological substances, initial encounter; Z91.128 Patient's intentional underdosing of medication regimen for other reason; Z91.14 Patient's other noncompliance with medication regimen; M54.2 Cervicalgia; Z91.030 Bee allergy status; Z91.018 Allergy to other foods
CPT/HCPCS: 99284; 96372; J1885; J1100

== ENCOUNTER 2018-02-07 20:51 | Emergency (ER) | payer SELFPAY ==
[2018-02-07] MEDS ORDERED: PREDNISONE 20 MG TABLET PO ONE (23:55)
[2018-02-07] MEDS ORDERED: LIDOCAINE 1% INJ-PF (10 MG/ML) 30 ML SDV NEB ONE (23:55)
[2018-02-07] MEDS ORDERED: AZITHROMYCIN 250 MG TABLET PO ONE (23:55)
[2018-02-07] MEDS ORDERED: ALBUTEROL SULFATE HFA (90 MCG/PUFF) 8 GM MDI (1 MDI/ER DISP) IH ONE (23:55)
[2018-02-07] MEDS ORDERED: IPRATROPIUM/ALBUTEROL 0.5-2.5 MG/3 ML AMPUL NEB ONE (23:55)
--- NOTE | 2018-02-08 00:43 | ER Document Report ---
ED General - General Chief Complaint: Cough Stated Complaint: COUGH Time Seen by Provider: 02/07/18 23:16 TRAVEL OUTSIDE OF THE [place] IN LAST 30 DAYS: No - HPI Patient complains to provider of: Cough myalgias Notes: Patient coming in for the last 8-9 days of cough sinus drainage sinus pressure chest congestion diffuse myalgias feeling unwell. Patient denies any recent travel out of state or out of country. Denies any recent antibiotics. Patient does smoke approximately half pack a day. Patient denies any past medical history denies any lung pathology COPD or asthma. Patient sleeping resting comfortably denies any fever chills nausea vomiting patient states tubal ligation no concern for at this time. - Related Data Allergies/Adverse Reactions: Bee stings Allergy (Severe, Uncoded 10/05/17 14:20) Hives, swelling cherries Allergy (Uncoded 10/05/17 14:20) hives/itch, throat closes Past Medical History - Social History Smoking Status: Current Every Day Smoker Family History: Reviewed & Not Pertinent, Malignancy - Strong family history breast cancer - Past Medical History Cardiac Medical History: Denies: Hx Coronary Artery Disease, Hx Heart Attack, Hx Hypertension - Low Pulmonary Medical History: Denies: Hx Asthma, Hx Bronchitis, Hx COPD, Hx Pneumonia Neurological Medical History: Reports: Hx Migraine. Denies: Hx Cerebrovascular Accident, Hx Seizures Renal/ Medical History: Reports: Hx Ovarian Cysts. Denies: Hx Peritoneal Dialysis Musculoskeletal Medical History: Denies Hx Arthritis, Reports Hx Fibromyalgia Past Surgical History: Reports: Hx Breast Surgery - L lumpectomy, Hx Section - x 2, Hx Cholecystectomy, Hx Gynecologic Surgery - LEEPx4, Hx Oral Surgery - wisdom teeth, Hx Tonsillectomy, Hx Tubal Ligation - Immunizations Immunizations up to date: Yes Hx Diphtheria, Pertussis, Tetanus Vaccination: Yes - 2016 Review of Systems - Review of Systems Constitutional: No symptoms reported EENT: Nose congestion, Sinus pressure, Sinus discharge Cardiovascular: No symptoms reported Respiratory: Cough, Short of breath Gastrointestinal: No symptoms reported Genitourinary: No symptoms reported Female Genitourinary: No symptoms reported Musculoskeletal: No symptoms reported Skin: No symptoms reported Hematologic/Lymphatic: No symptoms reported Neurological/Psychological: No symptoms reported -: Yes All other systems reviewed and negative Physical Exam - Vital signs Vitals: Temp Pulse Resp BP Pulse Ox 98.1 F 86 18 124/69 99 02/07/18 21:06 02/07/18 21:06 02/07/18 21:06 02/07/18 21:06 02/07/18 21:06 Interpretation: Normal - General General appearance: Appears well, Alert - HEENT Head: Normocephalic, Atraumatic Eyes: Normal Conjunctiva: Normal Cornea: Normal Eyelashes: Normal Pupils: PERRL Sinus: Maxillary Mouth/Lips: Normal Pharynx: Post nasal drainage Neck: Normal - Respiratory Respiratory status: No respiratory distress Chest status: Nontender Breath sounds: Wheezing - Scattered Chest palpation: Normal - Cardiovascular Rhythm: Regular Heart sounds: Normal auscultation Murmur: No - Abdominal Inspection: Normal Distension: No distension Bowel sounds: Normal Tenderness: Nontender Organomegaly: No organomegaly - Back Back: Normal, Nontender - Extremities General upper extremity: Normal inspection, Nontender, Normal color, Normal ROM , Normal temperature General lower extremity: Normal inspection, Nontender, Normal color, Normal ROM , Normal temperature, Normal weight bearing. No: Dutch's sign - Neurological Neuro grossly intact: Yes Cognition: Normal Orientation: AAOx4 Shae Coma Scale Eye Opening: Spontaneous [place] Coma Scale Verbal: Oriented Shae Coma Scale Motor: Obeys Commands [place] Coma Scale Total: 15 Speech: Normal Motor strength normal: LUE, RUE, LLE, RLE Sensory: Normal - Psychological Associated symptoms: Normal affect, Normal mood - Skin Skin Temperature: Warm Skin Moisture: Dry Skin Color: Normal Course - Re-evaluation Re-evalutation: 02/08/18 01:19 Patient with sinus tenderness more likely cough congestion caused from a sinus infection symptoms ongoing for the last 9 days will start patient on azithromycin for the patient's wheezing albuterol was given patient will be sent home with albuterol inhaler steroids were also administered. Patient was educated about smoking cessation. Patient discharged home - Vital Signs Vital signs: Temp Pulse Resp BP Pulse Ox 98.1 F 86 18 124/69 99 02/07/18 21:06 02/07/18 21:06 02/07/18 21:06 02/07/18 21:06 02/07/18 21:06 Discharge - Discharge Clinical Impression: Cough Sinusitis Qualifiers: Sinusitis location: maxillary Chronicity: acute Recurrence: non-recurrent Qualified Code(s): J01.00 - Acute maxillary sinusitis, unspecified Condition: Good Disposition: HOME, SELF-CARE Instructions: Azithromycin (OM), Sinusitis (OM) Additional Instructions: Your physical examination today is consistent with sinus infection developing to upper respiratory tract infection causing cough. We will treat you with an antibiotic called azithromycin. Also recommend using the inhaler that we gave you here in ER 2 puffs every 4 hours as needed for shortness of breath also recommend taking the steroids as prescribed to help decrease any sinus inflammation. Please stop smoking is that this will cause her symptoms to linger. Return to ER symptoms worsen follow-up with your primary care physician. Prescriptions: Azithromycin [Zithromax] 250 mg PO DAILY #4 tablet Prednisone [Deltasone 20 mg Tablet] 3 tab PO DAILY 4 Days tablet Forms: Smoking Cessation Education, Return to Work
[2018-02-08 01:52] VITALS: BP 112/63
== END 2018-02-08 01:50 | disposition home or self-care (01) ==
LOC: ER 20:51
DX: J01.00 Acute maxillary sinusitis, unspecified (principal); R05 Cough; R09.81 Nasal congestion; R06.02 Shortness of breath; M79.1 Myalgia; R06.2 Wheezing; R09.82 Postnasal drip; F17.200 Nicotine dependence, unspecified, uncomplicated; Z91.030 Bee allergy status; Z91.018 Allergy to other foods
CPT/HCPCS: 94640; 99283; J3490 ×2; J7512; J7620

== ENCOUNTER 2018-09-05 10:18 | Emergency (ER) | payer SELFPAY ==
--- NOTE | 2018-09-05 10:35 | ER Document Report ---
ED Medical Screen (RME) - General Chief Complaint: Numbness of Arm Stated Complaint: WEAKNESS Time Seen by Provider: 09/05/18 10:27 Mode of Arrival: Ambulatory Information source: Patient TRAVEL OUTSIDE OF THE [place] IN LAST 30 DAYS: No - HPI Patient complains to provider of: palpitations Notes: 09/05/18 10:33 Patient here with complaints of right-sided chest pain that went down her right arm. Started this morning around 715. She feels like her heart is beating fast and hard. She also had a near syncopal episode out in the lobby. She complains of some generalized weakness as well. She also reports that over the last week she has had some intermittent swelling of both of her hands and both of her feet. She denies any blurred or loss of vision, numbness, tingling, weakness to the face or leg, no slurred speech. Exam Nontoxic, no distress. Nonfocal neurological exam. Cranial nerves II through XII are grossly intact. Equal strength to the upper extremities. Lungs clear and equal throughout. Heart sounds normal. Plan CBC, CMP, troponin, mag, TSH, EKG, chest x-ray. At this point, the patient has no obvious signs of CVA or stroke. I will let the provider and back to determine if further advanced imaging is indicated at this time. An initial examination was made on the patient as part of the triage process, and it was determined a more comprehensive evaluation was necessary. Initial labs were ordered and patient was transferred to another provider in the ED who assumed care and finished evaluation and plan. - Related Data Allergies/Adverse Reactions: Bee stings Allergy (Severe, Uncoded 10/05/17 14:20) Hives, swelling cherries Allergy (Uncoded 10/05/17 14:20) hives/itch, throat closes Past Medical History - Social History Family history: Reviewed & Not Pertinent - Past Medical History Cardiac Medical History: Denies: Hx Coronary Artery Disease, Hx Heart Attack, Hx Hypertension - Low Pulmonary Medical History: Denies: Hx Asthma, Hx Bronchitis, Hx COPD, Hx Pneumonia Neurological Medical History: Reports: Hx Migraine. Denies: Hx Cerebrovascular Accident, Hx Seizures Renal/ Medical History: Reports: Hx Ovarian Cysts. Denies: Hx Peritoneal Dialysis Musculoskeltal Medical History: Denies Hx Arthritis, Reports Hx Fibromyalgia Past Surgical History: Reports: Hx Breast Surgery - L lumpectomy, Hx Section - x 2, Hx Cholecystectomy, Hx Gynecologic Surgery - LEEPx4, Hx Oral Surgery - wisdom teeth, Hx Tonsillectomy, Hx Tubal Ligation - Immunizations Immunizations up to date: Yes Hx Diphtheria, Pertussis, Tetanus Vaccination: Yes - 2016 Physical Exam - Vital signs Vitals: Temp Pulse Resp BP Pulse Ox 98 F 84 18 160/83 H 100 09/05/18 10:25 09/05/18 10:25 09/05/18 10:25 09/05/18 10:25 09/05/18 10:25 Course - Vital Signs Vital signs: Temp Pulse Resp BP Pulse Ox 98 F 84 18 160/83 H 100 09/05/18 10:25 09/05/18 10:25 09/05/18 10:25 09/05/18 10:25 09/05/18 10:25
[2018-09-05 11:10] LABS: ABSOLUTE EOSINOPHILS # (AUTO) 0.1 10^3/uL (0.0-0.6); ABSOLUTE MONOCYTES (AUTO) 0.6 10^3/uL (0.1-1.4); ABSOLUTE NEUT (AUTO) 5.4 10^3/uL (1.7-8.2); BASOPHILS % (AUTO) 0.5 % (0-2); HEMATOCRIT 41.5 % (36.0-47.0); LYMPHOCYTES % (AUTO) 24.1 % (13-45); MEAN CORPUSCULAR HEMOGLOBIN 27.2 pg (27.0-33.4); MEAN CORPUSCULAR HGB CONC 33.8 g/dL (32.0-36.0); MEAN CORPUSCULAR VOLUME 81 fl (80-97); MONOCYTES % (AUTO) 7.7 % (3-13); PLATELET COUNT 352 10^3/uL (150-450); RED BLOOD COUNT 5.15 10^6/uL (3.72-5.28); RED CELL DISTRIBUTION WIDTH 17.2 % (11.5-14.0); SEGMENTED NEUTROPHILS % (AUTO) 66.7 % (42-78); TOTAL CELLS COUNTED % (AUTO) 100 %; WHITE BLOOD COUNT 8.2 10^3/uL (4.0-10.5)
--- NOTE | 2018-09-05 11:13 | RADIOLOGY REPORT (SQ) ---
EXAM DESCRIPTION: CHEST SINGLE VIEW COMPLETED DATE/TIME: 09/05/2018 11:05 am REASON FOR STUDY: palpitations COMPARISON: 10/28/2016. EXAM PARAMETERS: NUMBER OF VIEWS: One view. TECHNIQUE: Single frontal radiographic view of the chest acquired. RADIATION DOSE: NA LIMITATIONS: None. FINDINGS: LUNGS AND PLEURA: No opacities, masses or pneumothorax. No pleural effusion. MEDIASTINUM AND HILAR STRUCTURES: No masses. Contour normal. HEART AND VASCULAR STRUCTURES: Heart normal in size. Normal vasculature. BONES: No acute findings. HARDWARE: None in the chest. Clips in the upper abdomen. OTHER: No other significant finding. IMPRESSION: NO ACUTE RADIOGRAPHIC FINDING IN THE CHEST. TECHNICAL DOCUMENTATION: JOB ID: [id number] [employer]- All Rights Reserved Reading location - IP/workstation name: [email or web address]
[2018-09-05 11:31] LABS: ALANINE AMINOTRANSFERASE 21 U/L (9-52); ALBUMIN 4.5 g/dL (3.5-5.0); ALKALINE PHOSPHATASE 58 U/L (38-126); ANION GAP 8 (5-19); ASPARTATE AMINO TRANSFERASE 22 U/L (14-36); BILIRUBIN,DIRECT 0.2 mg/dL (0.0-0.4); BILIRUBIN,TOTAL 0.4 mg/dL (0.2-1.3); BLOOD UREA NITROGEN 10 mg/dL (7-20); CALCIUM 9.6 mg/dL (8.4-10.2); CARBON DIOXIDE 26 mmol/L (22-30); CHLORIDE 104 mmol/L (98-107); GLUCOSE 95 mg/dL (75-110); POTASSIUM 4.4 mmol/L (3.6-5.0); TOTAL PROTEIN 7.8 g/dL (6.3-8.2)
[2018-09-05] MEDS ORDERED: MECLIZINE HCL 25 MG TABLET PO ONE (11:43)
[2018-09-05] MEDS ORDERED: KETOROLAC TROMETHAMINE INJ/PF 30 MG/1 ML SDV IV ONE (11:43)
[2018-09-05] MEDS ORDERED: NORMAL SALINE 1000 ML 1,000 ML IV ONE (11:43)
--- NOTE | 2018-09-05 12:15 | EKG REPORT ---
SEVERITY:- NORMAL ECG - SINUS RHYTHM : Confirmed by: Joe Nunes MD 05-Sep-2018 12:14:22
[2018-09-05] MEDS ORDERED: DIAZEPAM INJ 10 MG/2 ML DISP.SYRIN IV ONE (13:04)
[2018-09-05] MEDS ORDERED: CEFTRIAXONE 1 GM/D5W RTU 1 GM/50 ML RTUPB IV ONE (14:04)
[2018-09-05 15:11] LABS: APPEARANCE,URINE CLEAR; BILIRUBIN,URINE NEGATIVE (NEGATIVE); COLOR,URINE STRAW; GLUCOSE, URINE NEGATIVE (NEGATIVE); KETONES,URINE NEGATIVE (NEGATIVE); LEUKOCYTE ESTERASE,URINE NEGATIVE (NEGATIVE); NITRITE,URINE NEGATIVE (NEGATIVE); PROTEIN,URINE NEGATIVE (NEGATIVE); URINE SPECIFIC GRAVITY 1.005; UROBILINOGEN,URINE NEGATIVE mg/dL (<2.0)
--- NOTE | 2018-09-05 16:03 | ER Document Report ---
Entered by LOUIS ZAFAR SCRIBE 09/05/18 1158 Acting as scribe for:JEWEL ARELLANO MD ED General - General Chief Complaint: Numbness of Arm Stated Complaint: WEAKNESS Time Seen by Provider: 09/05/18 10:27 Mode of Arrival: Ambulatory Information source: Patient Notes: Patient is a 33 year old female presenting to the emergency department complaining of multiple symptoms including chest pain, right arm numbness, dizziness and light headedness. Patient states around 0715 this morning she developed right chest pain that radiated into her right arm and right hand. She describes the pain as an numbness and weakness in her arm and hand that has been intermittent since the onset. She also states she became very dizzy and light headed and felt her heart racing further stating she had a near syncope episode while in the emergency room lobby. She also complains of tunnel vision during her episode of near syncope. Patient further mentions bilateral hands and feet swelling onset 2 weeks ago, but it is not present now. She denies any fevers. TRAVEL OUTSIDE OF THE [place] IN LAST 30 DAYS: No - Related Data Allergies/Adverse Reactions: Bee stings Allergy (Severe, Uncoded 10/05/17 14:20) Hives, swelling cherries Allergy (Uncoded 10/05/17 14:20) hives/itch, throat closes Past Medical History - General Information source: Patient - Social History Smoking Status: Current Every Day Smoker Cigarette use (# per day): Yes Chew tobacco use (# tins/day): No Smoking Education Provided: No Frequency of alcohol use: None Family History: Reviewed & Not Pertinent, Malignancy - Strong family history breast cancer Patient has suicidal ideation: No Patient has homicidal ideation: No Neurological Medical History: Reports: Hx Migraine Renal/ Medical History: Reports: Hx Ovarian Cysts Musculoskeletal Medical History: Reports Hx Fibromyalgia Past Surgical History: Reports: Hx Breast Surgery - L lumpectomy, Hx Section - x 2, Hx Cholecystectomy, Hx Gynecologic Surgery - LEEPx4, Hx Oral Surgery - wisdom teeth, Hx Tonsillectomy, Hx Tubal Ligation - Immunizations Immunizations up to date: Yes Hx Diphtheria, Pertussis, Tetanus Vaccination: Yes - 2017 Review of Systems - Review of Systems Constitutional: No symptoms reported EENT: See HPI Cardiovascular: See HPI, Heart racing, Dizziness, Lightheaded Gastrointestinal: No symptoms reported Genitourinary: No symptoms reported Female Genitourinary: No symptoms reported Musculoskeletal: See HPI Skin: No symptoms reported Hematologic/Lymphatic: No symptoms reported Neurological/Psychological: See HPI -: Yes All other systems reviewed and negative Physical Exam - Vital signs Vitals: Temp Pulse Resp BP Pulse Ox 98 F 84 18 160/83 H 100 09/05/18 10:25 09/05/18 10:25 09/05/18 10:25 09/05/18 10:09/05/18 10:25 - Notes Notes: GENERAL: Alert, interacts well. No acute distress. HEAD: Normocephalic, atraumatic. EYES: Pupils equal, round, and reactive to light. Extraocular movements intact. Right lateral gaze nystagmus, complains of dizziness with head movement up and down and side to side. ENT: Oral mucosa moist, tongue midline. NECK: Full range of motion. Supple. Trachea midline. Left posterior cervical muscles tenderness to palpation, no tenderness to left trapezius. Right trapezius muscles tender to palpation. LUNGS: Clear to auscultation bilaterally, no wheezes, rales, or rhonchi. No respiratory distress. HEART: Regular rate and rhythm. No murmurs, gallops, or rubs. ABDOMEN: Soft, non-tender. Non-distended. Bowel sounds present in all 4 quadrants. No guarding, rigidity, or rebound. EXTREMITIES: Moves all 4 extremities spontaneously. No edema, radial and dorsalis pedis pulses 2/4 bilaterally. No cyanosis. There is no swelling to the hands or feet at this time. There is no thickening noted at the MCP synovial joints. NEUROLOGICAL: Alert and oriented x3. Normal speech. PSYCH: Normal affect, normal mood. SKIN: Warm, dry, normal turgor. No rashes or lesions noted. Course - Re-evaluation Re-evalutation: 09/05/18 13:00 Patient reports that her dizziness does not feel any different or any better at this time. 09/05/18 15:48 At this time the patient's dizziness seems to have subsided. She is able to look back and forth quickly without any symptoms. She reports that she does feel better. - Vital Signs Vital signs: Temp Pulse Resp BP Pulse Ox 98 F 84 17 109/72 100 09/05/18 10:25 09/05/18 11:54 09/05/18 14:01 09/05/18 14:01 09/05/18 14:01 - Laboratory Result Diagrams: 09/05/18 10:58 09/05/18 10:58 Laboratory results interpreted by me: 09/05/18 09/05/18 10:58 11:37 RDW 17.2 H Urine Blood SMALL H Discharge - Discharge Clinical Impression: Dizziness Trapezius muscle strain Qualifiers: Encounter type: initial encounter Laterality: right Qualified Code(s): S46.811A - Strain of other muscles, fascia and tendons at shoulder and upper arm level, right arm, initial encounter Condition: Stable Disposition: HOME, SELF-CARE Additional Instructions: Vertigo: You have experienced an episode of vertigo -- a whirling dizziness which may be accompanied by nausea and vomiting or staggering. Vertigo is often caused by an irritation of the inner ear, in which case it is called labyrinthitis. It can also be a symptom of a degenerating inner ear, nerve damage, or brain injury. Your physician has evaluated you to determine whether any further testing is necessary. Vertigo is often treated with dramamine or meclizine. These medications are helpful, but stronger medication may be needed if you are vomiting. Rest in bed. You should not drive or operate machinery until completely better. It may take one to three weeks for recovery. If there are new symptoms, such as decreased hearing or vision, severe headache, weakness or faintness, or confusion, call the physician. Trapezius Muscle Strain: You have probably strained your right trapezius muscle, and that is leading to the shoulder discomfort and numbness going down the arm to the hand. This often occurs with strenuous exertion, or during an injury that suddenly stretches the muscle. The seriousness of a strain varies. Some strains heal within days, others cause problems for months. X-rays cannot show a muscle strain. The usual treatment of a muscle strain is rest. Sometimes, a sling, splint, or crutches may be necessary to rest the muscle. The muscle can be used again once pain subsides. Severe strains require a special exercise and stretching program to prevent permanent stiffness and disability. Your doctor will advise you if this will be necessary. Call the doctor immediately if pain or swelling becomes severe, or if numbness or discoloration develop. Take the medication as prescribed for dizziness if needed. Do not drive, operate equipment, or do any other activity that puts you at risk if you were to get more dizzy. Take Tylenol and ibuprofen for shoulder pain and discomfort. Consider trying a sling for your right arm to allow the muscles to rest. Follow-up with your primary care provider if not improving. RETURN TO THE EMERGENCY ROOM IF ANY NEW OR WORSENING SYMPTOMS. Prescriptions: Meclizine HCl [Antivert 25 mg Tablet] 25 mg PO TID PRN #25 tablet PRN Reason: Scribe Attestation: 09/05/18 12:56 I personally performed the services described in the documentation, reviewed and edited the documentation which was dictated to the scribe in my presence, and it accurately records my words and actions. I personally performed the services described in the documentation, reviewed and edited the documentation which was dictated to the scribe in my presence, and it accurately records my words and actions.
[2018-09-05 16:39] VITALS: BP 102/66
== END 2018-09-05 16:30 | disposition home or self-care (01) ==
LOC: ER 10:18
DX: S46.811A Strain of other muscles, fascia and tendons at shoulder and upper arm level, right arm, initial encounter (principal); R42 Dizziness and giddiness; R20.0 Anesthesia of skin; R53.1 Weakness; R07.9 Chest pain, unspecified; M79.89 Other specified soft tissue disorders; X58.XXXA Exposure to other specified factors, initial encounter; F17.210 Nicotine dependence, cigarettes, uncomplicated
CPT/HCPCS: 36415; 71045; 80053; 81001; 83735; 84443; 84484; 85025; 93005; 93010; 96361; 96374; 96375; 99284; J1885; J3360; J7030

== ENCOUNTER 2018-11-20 23:26 | Emergency (ER) | payer SELFPAY ==
[2018-11-21 01:13] LABS: ABSOLUTE BASOPHILS # (AUTO) 0.1 10^3/uL (0.0-0.2); ABSOLUTE EOSINOPHILS # (AUTO) 0.1 10^3/uL (0.0-0.6); ABSOLUTE LYMPHOCYTES (AUTO) 1.9 10^3/uL (0.5-4.7); ABSOLUTE MONOCYTES (AUTO) 0.8 10^3/uL (0.1-1.4); BASOPHILS % (AUTO) 0.8 % (0-2); EOSINOPHILS % (AUTO) 1.3 % (0-6); HEMOGLOBIN 13.5 g/dL (12.0-15.5); LYMPHOCYTES % (AUTO) 21.5 % (13-45); MEAN CORPUSCULAR HEMOGLOBIN 27.3 pg (27.0-33.4); MEAN CORPUSCULAR HGB CONC 32.9 g/dL (32.0-36.0); MEAN CORPUSCULAR VOLUME 83 fl (80-97); MONOCYTES % (AUTO) 9.1 % (3-13); PLATELET COUNT 324 10^3/uL (150-450); RED BLOOD COUNT 4.94 10^6/uL (3.72-5.28); SEGMENTED NEUTROPHILS % (AUTO) 67.3 % (42-78); TOTAL CELLS COUNTED % (AUTO) 100 %; WHITE BLOOD COUNT 8.8 10^3/uL (4.0-10.5)
[2018-11-21 01:18] LABS: APPEARANCE,URINE CLEAR; BILIRUBIN,URINE NEGATIVE (NEGATIVE); COLOR,URINE STRAW; GLUCOSE, URINE NEGATIVE (NEGATIVE); KETONES,URINE NEGATIVE (NEGATIVE); LEUKOCYTE ESTERASE,URINE NEGATIVE (NEGATIVE); NITRITE,URINE NEGATIVE (NEGATIVE); PROTEIN,URINE NEGATIVE (NEGATIVE); UROBILINOGEN,URINE NEGATIVE mg/dL (<2.0)
[2018-11-21 01:19] LABS: URINE SPECIFIC GRAVITY 1.004
[2018-11-21 01:31] LABS: ALANINE AMINOTRANSFERASE 16 U/L (9-52); ALBUMIN 4.5 g/dL (3.5-5.0); ALKALINE PHOSPHATASE 56 U/L (38-126); ANION GAP 9 (5-19); ASPARTATE AMINO TRANSFERASE 22 U/L (14-36); BILIRUBIN,DIRECT 0.2 mg/dL (0.0-0.4); BILIRUBIN,TOTAL 0.2 mg/dL (0.2-1.3); BLOOD UREA NITROGEN 9 mg/dL (7-20); CALCIUM 9.6 mg/dL (8.4-10.2); CARBON DIOXIDE 28 mmol/L (22-30); CHLORIDE 103 mmol/L (98-107); GLUCOSE 94 mg/dL (75-110); LIPASE 67.2 U/L (23-300); POTASSIUM 4.3 mmol/L (3.6-5.0); TOTAL PROTEIN 7.2 g/dL (6.3-8.2)
[2018-11-21] MEDS ORDERED: MORPHINE SULFATE 10 MG/ML INJ IV ONE ×2 (01:41→02:56)
[2018-11-21] MEDS ORDERED: ONDANSETRON HCL INJ/PF 4 MG/2 ML SDV IV ONE ×2 (01:41→02:56)
[2018-11-21] MEDS ORDERED: NORMAL SALINE 1000 ML 1,000 ML IV ONE (01:41)
--- NOTE | 2018-11-21 01:44 | ER Document Report ---
ED GI/ - General Chief Complaint: Abdominal Pain Stated Complaint: ABDOMINAL PAIN Time Seen by Provider: 11/21/18 01:30 Notes: Patient is a 33-year-old female that comes to the emergency department for chief complaint of right lower quadrant pain. Pain started this morning, intermittently, then became constant this afternoon and worsened. Pain radiates up her right side but not to her back. She denies nausea or vomiting, fever/chills, vaginal bleeding or discharge. She states when she urinates it hurts a little bit in her abdomen, pain is also worse with movement. She denies injury. She reports history of cholecystectomy, tubal ligation, , denies history of kidney stones. TRAVEL OUTSIDE OF THE [place] IN LAST 30 DAYS: No - Related Data Allergies/Adverse Reactions: Bee stings Allergy (Severe, Uncoded 11/20/18 23:30) Hives, swelling cherries Allergy (Uncoded 11/20/18 23:30) hives/itch, throat closes Past Medical History - General Information source: Patient - Social History Smoking Status: Never Smoker Frequency of alcohol use: None Drug Abuse: None Lives with: Family Family History: Reviewed & Not Pertinent, Malignancy - Strong family history breast cancer - Past Medical History Cardiac Medical History: Denies: Hx Coronary Artery Disease, Hx Heart Attack, Hx Hypertension - Low Pulmonary Medical History: Denies: Hx Asthma, Hx Bronchitis, Hx COPD, Hx Pneumonia Neurological Medical History: Reports: Hx Migraine. Denies: Hx Cerebrovascular Accident, Hx Seizures Renal/ Medical History: Reports: Hx Ovarian Cysts. Denies: Hx Peritoneal Dialysis Musculoskeletal Medical History: Denies Hx Arthritis, Reports Hx Fibromyalgia Past Surgical History: Reports: Hx Breast Surgery - L lumpectomy, Hx Section - x 2, Hx Cholecystectomy, Hx Gynecologic Surgery - LEEPx4, Hx Oral Surgery - wisdom teeth, Hx Tonsillectomy, Hx Tubal Ligation - Immunizations Immunizations up to date: Yes Hx Diphtheria, Pertussis, Tetanus Vaccination: Yes - 2017 Review of Systems - Review of Systems Constitutional: No symptoms reported EENT: No symptoms reported Cardiovascular: No symptoms reported Respiratory: No symptoms reported Gastrointestinal: See HPI Genitourinary: No symptoms reported Female Genitourinary: No symptoms reported Musculoskeletal: No symptoms reported Skin: No symptoms reported Hematologic/Lymphatic: No symptoms reported Neurological/Psychological: No symptoms reported Physical Exam - Vital signs Vitals: Temp Pulse Resp BP Pulse Ox 97.8 F 90 20 116/67 98 11/20/18 23:31 11/20/18 23:31 11/20/18 23:31 11/20/18 23:31 11/20/18 23:31 - Notes Notes: GENERAL: Alert, interacts well. No acute distress. HEAD: Normocephalic, atraumatic. EYES: Pupils equal, round, and reactive to light. Extraocular movements intact. ENT: Oral mucosa moist, tongue midline. Oropharynx unremarkable. Airway patent. NECK: Full range of motion. Supple. Trachea midline. LUNGS: Clear to auscultation bilaterally, no wheezes, rales, or rhonchi. No respiratory distress. HEART: Regular rate and rhythm. No murmur ABDOMEN: Generally nontender, however there is tenderness in the right lower quadrant, slightly extends to the right mid quadrant. Patient winces and compl ains when the area is palpated. GENITOURINARY: Deferred EXTREMITIES: Moves all 4 extremities spontaneously. No edema, normal radial and dorsalis pedis pulses bilaterally. No cyanosis. BACK: no cervical, thoracic, lumbar midline tenderness. No saddle anesthesia, normal distal neurovascular exam. Moves all extremities in full range of motion. NEUROLOGICAL: Alert and oriented x3. Normal speech. Cranial nerves II through XII grossly intact. PSYCH: Normal affect, normal mood. SKIN: Warm, dry, normal turgor. No rashes or lesions noted. Course - Re-evaluation Re-evalutation: CBC, chemistry, urinalysis unremarkable. test is negative. It is difficult to get an accurate exam on patient, she does appear to be in pain but there is possibly an emotional component as well. Patient starts to grimace when I enter the room. However on repeat exam she does appear to have right lower quadrant tenderness. I discussed with patient and significant other, they do want a CAT scan performed to rule out appendicitis. CAT scan was performed, shows normal appendix. On my read there appears to be a lot of stool on the right side as well. No acute findings. I discussed with patient. Discussed how this could be lymph nodes, or reexamination of the abdomen is much more reassuring, she did not vomit contrast and she is tole rating fluids now without difficulty, discussed treatment at home, stool softener, expectations. I also discussed the possibility that this could be early developing acute abdomen and she is to return if she worsens in any way. Patient and significant other state understanding and agreement. - Vital Signs Vital signs: Temp Pulse Resp BP Pulse Ox 97.4 F 81 18 113/70 99 11/21/18 05:35 11/21/18 05:35 11/21/18 05:35 11/21/18 05:35 11/21/18 05:35 - Laboratory Result Diagrams: 11/21/18 00:54 11/21/18 00:54 Laboratory results interpreted by me: 11/21/18 11/21/18 00:54 00:54 RDW 16.0 H Urine Blood SMALL H Discharge - Discharge Clinical Impression: Abdominal pain Qualifiers: Abdominal location: unspecified location Qualified Code(s): R10.9 - Unspecified abdominal pain Condition: Good Disposition: HOME, SELF-CARE Additional Instructions: The CAT scan does not show any concerning findings. Frequently this kind of pain can be lymph nodes, he also have retained stool on the right side of your abdomen, I recommend the Toradol, I recommend a stool softener for the next several days, drink plenty fluids. Symptoms should resolve with time. Return if you worsen including vomiting, fever, swelling or worsening pain of the abdomen, or any other concerning or worsening symptoms. Prescriptions: Ketorolac Tromethamine [Toradol 10 mg Tablet] 10 mg PO Q8HP PRN #24 tablet PRN Reason: Docusate Sodium [Colace 100 mg Capsule] 100 mg PO ASDIR PRN #30 capsule PRN Reason: Promethazine HCl [Phenergan 25 mg Tablet] 25 mg PO Q6H PRN #20 tablet PRN Reason: Forms: Parent Work Note
--- NOTE | 2018-11-21 04:55 | RADIOLOGY REPORT (SQ) ---
CLINICAL HISTORY: RLQ pain COMPARISON: None. TECHNIQUE: CT ABDOMEN PELVIS WITH IV CONTRAST on 11/21/2018 12:00 AM CDT This exam was performed according to our departmental dose-optimization program, which includes automated exposure control, adjustment of the mA and/or kV according to patient size and/or use of iterative reconstruction technique. FINDINGS: Lower lungs are clear. Abdomen: The liver is normal in appearance. There is minimal intra and extrahepatic biliary dilatation. Cholecystectomy was performed. The pancreas and spleen are normal in appearance. The adrenal glands and kidneys are unremarkable. Abdominal aorta is normal in course and caliber without aneurysm. There is no free air. There is no retroperitoneal adenopathy. Pelvis: There is no bowel obstruction. Urinary bladder is unremarkable. There is no free fluid. Uterus is normal in size. Appendix is normal. Skeleton: There are no acute osseous findings. No suspicious bony lesions. IMPRESSION: No acute inflammatory process. No renal or ureteral calculi.
[2018-11-21] MEDS ORDERED: FAMOTIDINE 20 MG TABLET PO ONE (05:03)
[2018-11-21] MEDS ORDERED: KETOROLAC TROMETHAMINE INJ/PF 30 MG/1 ML SDV IV ONE (05:03)
[2018-11-21 05:36] VITALS: BP 113/70
== END 2018-11-21 05:37 | disposition home or self-care (01) ==
LOC: ER 23:26
DX: R10.31 Right lower quadrant pain (principal); Z90.49 Acquired absence of other specified parts of digestive tract; Z98.51 Tubal ligation status; Z87.42 Personal history of other diseases of the female genital tract; Z91.030 Bee allergy status; Z91.018 Allergy to other foods
CPT/HCPCS: 96376; 99284; 96361; 96374; 96375; 36415; 83690; 85025; 81025; 80053; 81001; 74177; J1885; J2270; J2405; J7030

== ENCOUNTER 2019-01-11 09:14 | Emergency (ER) | payer MEDICAID ==
[2019-01-11] MEDS ORDERED: NORMAL SALINE 1000 ML 1,000 ML IV ONE ×2 (09:47→10:49)
[2019-01-11] MEDS ORDERED: ONDANSETRON HCL INJ/PF 4 MG/2 ML SDV IV ONE (09:47)
--- NOTE | 2019-01-11 09:48 | ER Document Report ---
ED Medical Screen (RME) - General Chief Complaint: Nausea/Vomiting/Diarrhea Stated Complaint: DIARRHEA,ABDOMINAL PAIN,WEAKNESS Time Seen by Provider: 01/11/19 09:46 Information source: Patient Notes: Patient presents complaining of nausea diarrhea and abdominal pain for the past 4 days. Patient states she has had 6 bowel movements today. No blood in the stool. No fever. Patient denies any urinary symptoms. Patient complains of generalized abdominal pain as well as right flank pain. I have greeted and performed a rapid initial assessment of this patient. A comprehensive ED assessment and evaluation of the patient, analysis of test results and completion of the medical decision making process will be conducted by additional ED providers. TRAVEL OUTSIDE OF THE [place] IN LAST 30 DAYS: No - Related Data Allergies/Adverse Reactions: Bee stings Allergy (Severe, Uncoded 11/20/18 23:30) Hives, swelling cherries Allergy (Uncoded 11/20/18 23:30) hives/itch, throat closes Past Medical History - Social History Family history: Reviewed & Not Pertinent - Past Medical History Cardiac Medical History: Denies: Hx Coronary Artery Disease, Hx Heart Attack, Hx Hypertension - Low Pulmonary Medical History: Denies: Hx Asthma, Hx Bronchitis, Hx COPD, Hx Pneumonia Neurological Medical History: Reports: Hx Migraine. Denies: Hx Cerebrovascular Accident, Hx Seizures Renal/ Medical History: Reports: Hx Ovarian Cysts. Denies: Hx Peritoneal Dialysis Musculoskeltal Medical History: Denies Hx Arthritis, Reports Hx Fibromyalgia Past Surgical History: Reports: Hx Breast Surgery - L lumpectomy, Hx Section - x 2, Hx Cholecystectomy, Hx Gynecologic Surgery - LEEPx4, Hx Oral Surgery - wisdom teeth, Hx Tonsillectomy, Hx Tubal Ligation - Immunizations Immunizations up to date: Yes Hx Diphtheria, Pertussis, Tetanus Vaccination: Yes - 2017 Physical Exam - Vital signs Vitals: Temp Pulse Resp BP Pulse Ox 98.3 F 99 19 113/68 98 01/11/19 09:20 01/11/19 09:20 01/11/19 09:20 01/11/19 09:20 01/11/19 09:20 - General Notes: Generalized abdominal tenderness, right flank tenderness Course - Vital Signs Vital signs: Temp Pulse Resp BP Pulse Ox 98.3 F 99 19 113/68 98 01/11/19 09:20 01/11/19 09:20 01/11/19 09:20 01/11/19 09:20 01/11/19 09:20
[2019-01-11 10:07] LABS: ABSOLUTE EOSINOPHILS # (AUTO) 0.1 10^3/uL (0.0-0.6); ABSOLUTE MONOCYTES (AUTO) 0.7 10^3/uL (0.1-1.4); ABSOLUTE NEUT (AUTO) 3.9 10^3/uL (1.7-8.2); BASOPHILS % (AUTO) 0.2 % (0-2); EOSINOPHILS % (AUTO) 1.1 % (0-6); HEMATOCRIT 41.8 % (36.0-47.0); HEMOGLOBIN 13.9 g/dL (12.0-15.5); LYMPHOCYTES % (AUTO) 18.4 % (13-45); MEAN CORPUSCULAR HEMOGLOBIN 27.8 pg (27.0-33.4); MEAN CORPUSCULAR HGB CONC 33.3 g/dL (32.0-36.0); MEAN CORPUSCULAR VOLUME 83 fl (80-97); PLATELET COUNT 290 10^3/uL (150-450); RED BLOOD COUNT 5.01 10^6/uL (3.72-5.28); RED CELL DISTRIBUTION WIDTH 15.9 % (11.5-14.0); SEGMENTED NEUTROPHILS % (AUTO) 68.3 % (42-78); TOTAL CELLS COUNTED % (AUTO) 100 %; WHITE BLOOD COUNT 5.7 10^3/uL (4.0-10.5)
[2019-01-11 10:33] LABS: ALBUMIN 4.8 g/dL (3.5-5.0); ALKALINE PHOSPHATASE 115 U/L (38-126); ANION GAP 11 (5-19); ASPARTATE AMINO TRANSFERASE 453 U/L (14-36); BILIRUBIN,DIRECT 0.7 mg/dL (0.0-0.4); BLOOD UREA NITROGEN 8 mg/dL (7-20); CALCIUM 9.4 mg/dL (8.4-10.2); CARBON DIOXIDE 27 mmol/L (22-30); CHLORIDE 100 mmol/L (98-107); GLUCOSE 83 mg/dL (75-110); POTASSIUM 3.9 mmol/L (3.6-5.0)
[2019-01-11 10:42] LABS: APPEARANCE,URINE SLIGHTLY-CLOUDY; BILIRUBIN,URINE NEGATIVE (NEGATIVE); GLUCOSE, URINE NEGATIVE (NEGATIVE); KETONES,URINE NEGATIVE (NEGATIVE); LEUKOCYTE ESTERASE,URINE NEGATIVE (NEGATIVE); NITRITE,URINE NEGATIVE (NEGATIVE); PROTEIN,URINE NEGATIVE (NEGATIVE); URINE SPECIFIC GRAVITY 1.019
[2019-01-11 10:44] LABS: COLOR,URINE YELLOW
--- NOTE | 2019-01-11 10:57 | ER Document Report ---
ED GI/ - General Chief Complaint: Nausea/Vomiting/Diarrhea Stated Complaint: DIARRHEA,ABDOMINAL PAIN,WEAKNESS Time Seen by Provider: 01/11/19 09:46 Primary Care Provider: DONNA GUTIERREZ MD [Primary Care Provider] - Follow up as needed Notes: Patient says that she has had diarrhea since 3 AM Tuesday and is getting worse. She has had diarrhea about 15 times yesterday and so far today she has had 6 episodes of diarrhea. She has been nauseated but has not vomited any. She is able to drink fluids. Complains of abdominal pain "all over" my abdomen and into the right back flank region. Has never had this before. Not on any recent antibiotics. No exposure to anyone with similar symptoms. Denies urinary tract symptoms. Has not had any fever. LMP 2 weeks ago. Status post BTL. Cholecystectomy. . Not on any regular prescription medications. TRAVEL OUTSIDE OF THE [place] IN LAST 30 DAYS: No - Related Data Allergies/Adverse Reactions: Bee stings Allergy (Severe, Uncoded 11/20/18 23:30) Hives, swelling cherries Allergy (Uncoded 11/20/18 23:30) hives/itch, throat closes Past Medical History - General Information source: Patient - Social History Smoking Status: Current Every Day Smoker Family History: Reviewed & Not Pertinent, Malignancy - Strong family history breast cancer Patient has suicidal ideation: No Patient has homicidal ideation: No Neurological Medical History: Reports: Hx Migraine Renal/ Medical History: Reports: Hx Ovarian Cysts Musculoskeletal Medical History: Reports Hx Fibromyalgia Past Surgical History: Reports: Hx Breast Surgery - L lumpectomy, Hx Section - x 2, Hx Cholecystectomy, Hx Gynecologic Surgery - LEEPx4, Hx Oral Surgery - wisdom teeth, Hx Tonsillectomy, Hx Tubal Ligation - Immunizations Immunizations up to date: Yes Hx Diphtheria, Pertussis, Tetanus Vaccination: Yes - 2016 Review of Systems - Review of Systems Notes: REVIEW OF SYSTEMS: CONSTITUTIONAL : Denies fever. EENT: Denies eye, ear, nose or mouth or throat pain or other symptoms. CARDIOVASCULAR: Denies chest pain. RESPIRATORY: Denies cough, chest congestion, or shortness of breath. GASTROINTESTINAL: See HPI. Diarrhea but not vomiting any. Nauseated. GENITOURINARY: Denies difficulty or painful urinating, urinary frequency, blood in urine. LMP 2 weeks ago. MUSCULOSKELETAL: Denies back or neck pain. Denies joint pain or swelling. SKIN: Denies rash or skin lesions. NEUROLOGICAL: Denies LOC or altered mental status. Denies headache. Denies sensory loss or motor deficits. ALL OTHER SYSTEMS REVIEWED AND NEGATIVE. Physical Exam - Vital signs Vitals: Temp Pulse Resp BP Pulse Ox 98.3 F 99 19 113/68 98 01/11/19 09:20 01/11/19 09:20 01/11/19 09:20 01/11/19 09:20 01/11/19 09:20 Interpretation: Normal Notes: PHYSICAL EXAMINATION: GENERAL: Well-appearing, in no acute distress. Appears to be in some discomfort. Vital signs are all normal. HEAD: Atraumatic, normocephalic. EYES: Pupils equal round and reactive to light, extraocular movements intact. ENT: oropharynx clear without exudates. Moist mucous membranes. NECK: Normal range of motion, supple. LUNGS: Breath sounds clear and equal bilaterally. HEART: Regular rate and rhythm without murmurs. ABDOMEN: Soft, slightly more tender to the right side of the umbilicus. Tender in the right lower quadrant, but not with any significant guarding or resistance and does not feel like abdomen and I would expect if she has appendicitis. BACK: No tenderness throughout entire back. EXTREMITIES: Normal range of motion without pain. NEUROLOGICAL: Normal speech, normal gait. Normal sensory, motor, and reflex exams. Awake, alert, and oriented x3. Cranial nerves normal. SKIN: Warm, dry, no rashes. Course - Re-evaluation Re-evalutation: 01/11/19 14:44 Patient continues to have pain, primarily to the right side of her abdomen, but no left-sided pain. She has been unable to give us a stool specimen, in spite of the fact that she said she had already had 6 bowel movements a day and 15 yes terday, but none in the several hours she is been here.. Examining the patient reveals some mild tenderness in the mid abdomen and into the right lower quadrant, but not really that tender and certainly no guarding in the right lower quadrant at McBurney's point. I do not think this patient has ap pendicitis. Have discussed that with her. We are going to treat her with an antispasmodic, Bentyl, and advised the patient to return tomorrow if she is not doing any better we will consider further testing including may be a CT scan. - Vital Signs Vital signs: Temp Pulse Resp BP Pulse Ox 97.5 F 73 19 112/77 99 01/11/19 15:06 01/11/19 15:06 01/11/19 09:20 01/11/19 15:06 01/11/19 15:06 - Laboratory Result Diagrams: 01/11/19 09:45 01/11/19 09:45 Laboratory results interpreted by me: 01/11/19 01/11/19 01/11/19 09:45 09:45 09:45 RDW 15.9 H Direct Bilirubin 0.7 H AST 453 H Urine Blood MODERATE H Urine Urobilinogen 4.0 H Discharge - Discharge Clinical Impression: Diarrhea, Abdominal pain Condition: Stable Disposition: HOME, SELF-CARE Instructions: Observation for Appendicitis ([facility]) Additional Instructions: ABDOMINAL PAIN: There are many causes of abdominal pain. Pain can mean a serious problem requiring surgery (such as appendicitis). It can also be an innocent problem that goes away on its own (such as a viral infection). Often, time must pass to determine the cause of pain. The physician does not feel that hospitalization is necessary, at present. Things may change within the next 24 hours. Call the doctor or come back for re- examination if any problems occur, such as: (1) Pain that becomes more severe, steady, or becomes concentrated in one specific area. Also, pain that is more severe with movement or coughing. (2) Vomiting that persists or becomes more frequent. (3) Blood in the vomitus, urine, or bowel movements. Blood in the stool may have a tarry or black appearance. (4) Shaking chills or fever greater than 100 degrees F. (5) The abdomen becomes more distended or swollen. (6) Bowel movements cease. (7) Failure to improve as expected. NORMAL EXAM AND WORKUP: At this time, your examination and workup show no significant abnormality. No significant abnormal physical findings are noted. All laboratory, EKG, and imaging (x-ray, CT scans, ultrasound) studies that were ordered show no significant abnormality. Although your examination and all studies that were ordered showed no significant abnormal finding, there are no examinations and no studies that are 100% accurate. There is always the possibility that some abnormality could exist and not be detected with physical examination or within the limits and capabilities of laboratory and other studies. You should return or follow up as you were instructed on your visit today for further evaluation if your symptoms do not resolve. ANTINAUSEA MEDICATION: You have been given a medication to suppress nausea and vomiting. This type of medication can be given as a shot, pill, or suppository. It will usually last for many hours. Pills and shots usually last six to eight hours, suppositories last about 12 hours. For the typical illness, only one or two doses of the medication may be necessary. Mild lightheadedness may occur. This type of medicine can cause drowsiness. Do not drive or operate dangerous machinery while under its influence. Do not mix with alcohol. See your doctor at once if you have muscle spasms or tightness, or uncontrollable motions (particularly of the neck, mouth, or jaw). Persistent vomiting or severe lightheadedness should also be evaluated by the physician. ANTISPASMODICS: You have been given a prescription for an antispasmodic medicine. This type of drug is used to decrease cramping and pain in the intestines. It is also use d to decrease secretion of internal fluids (such as stomach acid in ulcer disease or pancreatic juice in pancreas disease). This medicine may cause drowsiness, especially with the first dose. Do not operate machinery or drive until all side effects have resolved. Do not combine with alcohol. Other common side effects include dry mouth and eyes. In older persons, antispasmodics can occasionally cause urinary retention, constipation, or trouble focusing the eyes. Glaucoma may be worsened by this medicine. DIARRHEA, NON-SPECIFIC: Diarrhea means frequent, watery stools. There are many causes. Any problem that keeps the intestinal tract from absorbing water from the stool can lead to diarrhea. A sudden new diarrhea problem is usually caused by a virus, food sensitivi ty, toxic bacteria, or drugs. In this case, we expect the problem to go away soon. Testing is done only if you seem seriously ill from the diarrhea. If you have chronic diarrhea, or diarrhea that keeps coming back, we need to find out why. Chronic diarrhea can be due to inflammation of the bowels such as Crohn's disease or ulcerative colitis, food sensitivity such as intolerance to lactose or wheat protein, irritable bowel syndrome, and other problems. If your diarrhea is a significant problem but it's not clear why you have it, we'll refer you to a specialist for further testing. During an episode of diarrhea, drink small amounts (two to six ounces) of clear liquids (soft drinks, sport drinks, herb teas, broth, etc). Take fluids frequently to prevent dehydration. It's usually not a problem to take mild anti- diarrhea medication such as Kaopectate or Pepto-Bismol. As the diarrhea eases, advance to small amounts of bland food (mashed potato, toast) for 24 hours. Call the physician if blood appears in your vomit or stool, if vomiting lasts longer than 24 hours, if the abdominal pain worsens or becomes localized to one area, if you develop high fever, or if you become lightheaded and weak. INTRAVENOUS (I V) FLUIDS: As part of your care today, you received intravenous (IV) fluids. IV fluids are administered to patients who are dehydrated or to those who have certain chemical (electrolyte) abnormalities that need correcting. FOLLOW-UP CARE: If you have been referred to a physician for follow-up care, call the physicians office for an appointment as you were instructed or within the next two days. If you experience worsening or a significant change in your symptoms, notify the physician immediately or return to the Emergency Department at any time for re-evaluation. At this time, I do not think you have appendicitis. If you are not doing better tomorrow and your pain has not subsided, return for us to reevaluate as we may want to do further studies such as a CT scan. In the meantime, if your symptoms get worse this evening, feel free to come back for us to see you at that time. Prescriptions: Dicyclomine HCl [Bentyl 20 mg Tablet] 40 mg PO QIDP PRN #20 tablet PRN Reason: Referrals: DONNA GUTIERREZ MD [Primary Care Provider] - Follow up as needed
[2019-01-11] MEDS ORDERED: DICYCLOMINE HCL 20 MG TABLET PO ONE (14:46)
[2019-01-11 15:10] VITALS: BP 112/77
== END 2019-01-11 15:10 | disposition home or self-care (01) ==
LOC: ER 09:14
DX: R19.7 Diarrhea, unspecified (principal); R10.9 Unspecified abdominal pain; R11.2 Nausea with vomiting, unspecified; R53.1 Weakness; Z90.49 Acquired absence of other specified parts of digestive tract; Z98.51 Tubal ligation status
CPT/HCPCS: 99284; 96361; 96374; 36415; 83690; 84703; 85025; 80053; 81001; J3490; J2405; J7030

== ENCOUNTER 2019-04-23 19:39 | Emergency (ER) | payer SELFPAY ==
--- NOTE | 2019-04-23 20:20 | ER Document Report ---
ED Medical Screen (RME) - General Chief Complaint: Chest Pain Stated Complaint: CHEST PAIN Time Seen by Provider: 04/23/19 20:15 Primary Care Provider: DONNA GUTIERREZ MD [Primary Care Provider] - Follow up as needed Mode of Arrival: Medic Information source: Patient Notes: Patient states she was at work around 635 and developed sharp chest pain that radiated to the left upper extremity. Patient states she felt flushed and got diaphoretic. Patient states the pain radiates into the left side of her jaw. No nausea or vomiting no shortness of breath. Patient was given aspirin per EMS as well as a spray of nitro which did not help her pain symptoms. Patient denies any history of heart problems. Only past medical history is fibromyalgia I have greeted and performed a rapid initial assessment of this patient. A comprehensive ED assessment and evaluation of the patient, analysis of test results and completion of the medical decision making process will be conducted by additional ED providers. TRAVEL OUTSIDE OF THE [place] IN LAST 30 DAYS: No - Related Data Allergies/Adverse Reactions: Bee stings Allergy (Severe, Uncoded 11/20/18 23:30) Hives, swelling cherries Allergy (Uncoded 11/20/18 23:30) hives/itch, throat closes Past Medical History - Social History Family history: Reviewed & Not Pertinent - Past Medical History Cardiac Medical History: Denies: Hx Coronary Artery Disease, Hx Heart Attack, Hx Hypertension - Low Pulmonary Medical History: Denies: Hx Asthma, Hx Bronchitis, Hx COPD, Hx Pneumonia Neurological Medical History: Reports: Hx Migraine. Denies: Hx Cerebrovascular Accident, Hx Seizures Renal/ Medical History: Reports: Hx Ovarian Cysts. Denies: Hx Peritoneal Dialysis Musculoskeltal Medical History: Denies Hx Arthritis, Reports Hx Fibromyalgia Past Surgical History: Reports: Hx Breast Surgery - L lumpectomy, Hx Section - x 2, Hx Cholecystectomy, Hx Gynecologic Surgery - LEEPx4, Hx Oral Surgery - wisdom teeth, Hx Tonsillectomy, Hx Tubal Ligation - Immunizations Immunizations up to date: Yes Hx Diphtheria, Pertussis, Tetanus Vaccination: Yes - 2016 Physical Exam - Vital signs Vitals: Temp Pulse Resp BP Pulse Ox 98.3 F 82 18 118/78 99 04/23/19 20:04 04/23/19 20:04 04/23/19 20:04 04/23/19 20:04 04/23/19 20:04 - Cardiovascular Rhythm: Regular Heart sounds: S1 appreciated, S2 appreciated Murmur: No Course - Vital Signs Vital signs: Temp Pulse Resp BP Pulse Ox 98.3 F 82 18 118/78 99 04/23/19 20:04 04/23/19 20:04 04/23/19 20:04 04/23/19 20:04 04/23/19 20:04 Doctor's Discharge - Discharge Referrals: DONNA GUTIERREZ MD [Primary Care Provider] - Follow up as needed
[2019-04-23 20:30] LABS: ABSOLUTE EOSINOPHILS # (AUTO) 0.2 10^3/uL (0.0-0.6); ABSOLUTE LYMPHOCYTES (AUTO) 2.8 10^3/uL (0.5-4.7); ABSOLUTE MONOCYTES (AUTO) 0.6 10^3/uL (0.1-1.4); ABSOLUTE NEUT (AUTO) 5.1 10^3/uL (1.7-8.2); BASOPHILS % (AUTO) 0.6 % (0-2); EOSINOPHILS % (AUTO) 1.8 % (0-6); HEMATOCRIT 39.3 % (36.0-47.0); HEMOGLOBIN 13.3 g/dL (12.0-15.5); LYMPHOCYTES % (AUTO) 32.3 % (13-45); MEAN CORPUSCULAR HEMOGLOBIN 28.5 pg (27.0-33.4); MEAN CORPUSCULAR HGB CONC 33.9 g/dL (32.0-36.0); MEAN CORPUSCULAR VOLUME 84 fl (80-97); MONOCYTES % (AUTO) 6.7 % (3-13); PLATELET COUNT 320 10^3/uL (150-450); RED BLOOD COUNT 4.67 10^6/uL (3.72-5.28); RED CELL DISTRIBUTION WIDTH 15.3 % (11.5-14.0); SEGMENTED NEUTROPHILS % (AUTO) 58.6 % (42-78); TOTAL CELLS COUNTED % (AUTO) 100 %; WHITE BLOOD COUNT 8.7 10^3/uL (4.0-10.5)
[2019-04-23 20:41] LABS: ALBUMIN 4.5 g/dL (3.5-5.0); ALKALINE PHOSPHATASE 54 U/L (38-126); ANION GAP 14 (5-19); ASPARTATE AMINO TRANSFERASE 26 U/L (14-36); BILIRUBIN,DIRECT 0.2 mg/dL (0.0-0.4); BILIRUBIN,TOTAL 0.3 mg/dL (0.2-1.3); BLOOD UREA NITROGEN 9 mg/dL (7-20); CALCIUM 9.2 mg/dL (8.4-10.2); CARBON DIOXIDE 26 mmol/L (22-30); CHLORIDE 101 mmol/L (98-107); GLUCOSE 85 mg/dL (75-110); POTASSIUM 3.6 mmol/L (3.6-5.0); TOTAL PROTEIN 7.8 g/dL (6.3-8.2)
[2019-04-23 21:24] LABS: APPEARANCE,URINE CLEAR; BILIRUBIN,URINE NEGATIVE (NEGATIVE); COLOR,URINE YELLOW; GLUCOSE, URINE NEGATIVE (NEGATIVE); KETONES,URINE NEGATIVE (NEGATIVE); LEUKOCYTE ESTERASE,URINE NEGATIVE (NEGATIVE); NITRITE,URINE NEGATIVE (NEGATIVE); PROTEIN,URINE NEGATIVE (NEGATIVE); URINE SPECIFIC GRAVITY 1.011; UROBILINOGEN,URINE NEGATIVE mg/dL (<2.0)
--- NOTE | 2019-04-23 21:26 | RADIOLOGY REPORT (SQ) ---
EXAM DESCRIPTION: XR CHEST 2 VIEWS COMPLETED DATE/TME: 04/23/2019 20:19 CLINICAL HISTORY: 34 years, Female, cp COMPARISON: Prior study from 09/05/2018 NUMBER OF VIEWS: Two TECHNIQUE: Frontal and lateral radiographs of the chest were obtained LIMITATIONS: None. FINDINGS: Cardiac and mediastinal contours are normal in appearance. Lungs are clear. No pleural effusion or pneumothorax. IMPRESSION: No acute disease. copyright 2010 [employer]- All Rights Reserved
--- NOTE | 2019-04-23 23:09 | EKG REPORT ---
SEVERITY:- NORMAL ECG - SINUS RHYTHM : Confirmed by: Joe Nunes MD 23-Apr-2019 23:07:32
[2019-04-24] MEDS ORDERED: TRAMADOL HCL 50 MG TABLET PO ONE (00:21)
--- NOTE | 2019-04-24 00:34 | ER Document Report ---
ED General - General Chief Complaint: Chest Pain Stated Complaint: CHEST PAIN Time Seen by Provider: 04/23/19 20:15 Primary Care Provider: DONNA GUTIERREZ MD [ACTIVE STAFF] - Follow up as needed Mode of Arrival: Medic TRAVEL OUTSIDE OF THE [place] IN LAST 30 DAYS: No - HPI Notes: Kaylee Franco is a 34-year-old female a chief complaint of chest pain. Rosana ent says she was at work at [employer] today around 6 PM when she developed a sharp left anterior chest pain which radiated into her neck and her shoulder. She has pain is been intermittent then and is fleeting "grabbing" a few seconds at a time. She continues to have discomfort. Patient is a non-smoker. No history of diabetes hypertension or hyperlipidemia. Denies use of cocaine. Family history remarkable for father who in his 60s with an GA. Patient denies any known personal or family history of history of thromboembolic disease. She is not on any hormonal medication. She has had no recent trauma, immobilization, or surgery. HEART Score: HISTORY 1 ECG 0 AGE 0 RISK FACTORS 0 TROPONIN 0 TOTAL: 1 If HEART score is = 3 AND both tronponin measurments are normal, the 30 day risk of a major adverse cardiac event (all-cause mortality, myocardia infarction or need for coronary revscularization) is < 1% (Sensitivity 100%, NPV 100%). PERC Screen NEGATIVE for PE HADCLOTS mnemonic H Hormone administration NEG A Age>50 NEG D DVT/PE previously NEG C Coughing up blood NEG L Leg swelling unilaterally NEG O O2 sat <95% NEG T Tachycardia NEG S Surgery/Trauma recently NEG - Related Data Allergies/Adverse Reactions: Bee stings Allergy (Severe, Uncoded 04/23/19 20:27) Hives, swelling cherries Allergy (Uncoded 04/23/19 20:27) hives/itch, throat closes Past Medical History - General Information source: Patient - Social History Smoking Status: Current Every Day Smoker Frequency of alcohol use: Occasional Family History: Reviewed & Not Pertinent, Malignancy - Strong family history breast cancer Patient has suicidal ideation: No Patient has homicidal ideation: No - Past Medical History Cardiac Medical History: Denies: Hx Coronary Artery Disease, Hx Heart Attack, Hx Hypertension - Low Pulmonary Medical History: Denies: Hx Asthma, Hx Bronchitis, Hx COPD, Hx Pneumonia Neurological Medical History: Reports: Hx Migraine. Denies: Hx Cerebrovascular Accident, Hx Seizures Renal/ Medical History: Reports: Hx Ovarian Cysts. Denies: Hx Peritoneal Dialysis Musculoskeletal Medical History: Denies Hx Arthritis, Reports Hx Fibromyalgia Past Surgical History: Reports: Hx Breast Surgery - L lumpectomy, Hx Section - x 2, Hx Cholecystectomy, Hx Gynecologic Surgery - LEEPx4, Hx Oral Surgery - wisdom teeth, Hx Tonsillectomy, Hx Tubal Ligation - Immunizations Immunizations up to date: Yes Hx Diphtheria, Pertussis, Tetanus Vaccination: Yes - 2016 Review of Systems - Review of Systems Notes: Constitutional: Negative for fever. HENT: Negative for sore throat. Eyes: Negative for visual changes. Cardiovascular: As per HPI. Respiratory: Negative for shortness of breath. Gastrointestinal: Negative for abdominal pain, vomiting or diarrhea. Genitourinary: Negative for dysuria. Musculoskeletal: Negative for back pain. Skin: Negative for rash. Neurological: Negative for headaches, weakness or numbness. 10 point ROS negative except as marked above and in HPI. Physical Exam - Vital signs Vitals: Temp Resp Pulse Ox 98.3 F 18 99 04/23/19 19:39 04/23/19 19:39 04/23/19 19:39 - Notes Notes: GENERAL: Well-developed well-nourished appearing in no acute distress. SKIN: Good turgor no rashes. HEAD: Normocephalic atraumatic. EYES: PERRLA. Conjunctivae and sclerae clear. EARS: CANALS AND TMS CLEAR. NOSE: CLEAR. MOUTH: Moist mucosa. Good dentition. No stridor or edema. No drooling. NECK: Supple. No masses or thyromegaly. No adenopathy. Carotids 2+ without bruits. No JVD. BACK: Symmetrical without tenderness. CHEST: Respirations unlabored. Breath sounds clear and symmetrical. HEART: Exquisitely tender over left anterior chest area along left sternal border with exact reproduction of patient's symptoms. Regular rhythm. No murmur gallop or rub. ABDOMEN: Soft nontender without masses, organomegaly or rebound. Bowel sounds normally active. No bruits. GENITALIA: Deferred. EXTREMITIES: No edema. No calf tenderness. Cap refill less than 1.5 seconds. Dorsalis pedis and posterior tibial pulses 3+ and symmetrical. NEUROLOGICAL: GCS 15. Alert and oriented x3. Normal gait. Fluent speech. Cranial nerves II through XII intact. Sensorimotor and cerebellar normal. Normal tone. Course - Re-evaluation Re-evalutation: 04/24/19 02:18 EKG x2 normal. PERC negative. Heart score of 1. Pain is completely reproducible with palpation. Troponin x2-. Relief of pain with tramadol orally. - Vital Signs Vital signs: Temp Pulse Resp BP Pulse Ox 98.3 F 82 18 118/78 99 04/23/19 20:04 04/23/19 20:04 04/23/19 20:04 04/23/19 20:04 04/23/19 20:04 - Laboratory Result Diagrams: 04/23/19 19:24 04/23/19 19:24 Laboratory results interpreted by me: 04/23/19 04/23/19 19:24 20:55 RDW 15.3 H Urine Blood MODERATE H - Diagnostic Test Radiology reviewed: Reports reviewed - EKG Interpretation by Me EKG shows normal: Sinus rhythm, [place] Rate: Normal Additional EKG results interpreted by me: 04/24/19 00:36 Normal tracing Discharge - Discharge Clinical Impression: Chest wall pain Condition: Stable Disposition: HOME, SELF-CARE Instructions: Chest Wall Pain ([facility]) Additional Instructions: Return here as needed for new or worsening symptoms. Follow-up with referral doctor. Work note for the next 3 days is provided. Prescriptions: Naproxen 500 mg PO BID PRN 7 Days #14 tablet PRN Reason: Tizanidine HCl 2 mg PO TID 7 Days #21 tablet Forms: Return to Work Referrals: DONNA GUTIERREZ MD [ACTIVE STAFF] - Follow up as needed
[2019-04-24 02:38] VITALS: BP 101/70
--- NOTE | 2019-04-24 07:07 | EKG REPORT ---
SEVERITY:- BORDERLINE ECG - SINUS RHYTHM BORDERLINE T ABNORMALITIES, ANT-LAT LEADS : Confirmed by: Joe Nunes MD 24-Apr-2019 07:06:17
== END 2019-04-24 02:38 | disposition home or self-care (01) ==
LOC: ER 19:39
DX: R07.89 Other chest pain (principal); F17.200 Nicotine dependence, unspecified, uncomplicated; Z91.030 Bee allergy status; Z91.018 Allergy to other foods; Z82.49 Family history of ischemic heart disease and other diseases of the circulatory system
CPT/HCPCS: 36415; 71046; 80053; 81001; 84484; 84703; 85025; 93005; 93010; 99284

== ENCOUNTER 2019-07-05 16:56 | Emergency (ER) | payer SELFPAY ==
[2019-07-05] MEDS ORDERED: ONDANSETRON HCL INJ/PF 4 MG/2 ML SDV IV ONE (17:11)
[2019-07-05] MEDS ORDERED: NORMAL SALINE 1000 ML 1,000 ML IV ONE (17:11)
[2019-07-05] MEDS ORDERED: KETOROLAC TROMETHAMINE INJ/PF 30 MG/1 ML SDV IV ONE (17:11)
--- NOTE | 2019-07-05 17:13 | ER Document Report ---
ED Medical Screen (RME) - General Chief Complaint: Flank Pain Stated Complaint: POSSIBLE RIGHT FLANK PAIN Time Seen by Provider: 07/05/19 17:07 TRAVEL OUTSIDE OF THE [place] IN LAST 30 DAYS: No - HPI Notes: 07/05/19 17:11 Patient is a 34-year-old female no significant past medical history aside from fibromyalgia who presents complaining of sudden onset left flank pain that radiates around into her groin that began today. Patient states that she has only urinated twice and were only small in amount which is uncommon for her. Denies injury. She is able to eat and drink, but does have decreased p.o. i ntake. She is having normal bowel movements. No vaginal bleeding, odor, or discharge. No fever, chest pain, shortness of breath. No saddle anesthesia. I have treated and performed a rapid initial assessment of this patient. A comprehensive ED assessment and evaluation of the patient, analysis of test results and completion of medical decision making process will be conducted by additional ED providers. PHYSICAL EXAMINATION: GENERAL: Well-appearing, well-nourished and in no acute distress. A&Ox4. Answers questions appropriately. Abdomen: There is noted left CVA tenderness and mild tenderness left lower abdomen to palpation. Limited exam in triage otherwise. - Related Data Allergies/Adverse Reactions: Bee stings Allergy (Severe, Uncoded 07/05/19 17:06) Hives, swelling cherries Allergy (Uncoded 07/05/19 17:06) hives/itch, throat closes Past Medical History - Social History Chew tobacco use (# tins/day): No Frequency of alcohol use: Social Drug Abuse: None Family history: Reviewed & Not Pertinent - Past Medical History Cardiac Medical History: Denies: Hx Coronary Artery Disease, Hx Heart Attack, Hx Hypertension - Low Pulmonary Medical History: Denies: Hx Asthma, Hx Bronchitis, Hx COPD, Hx Pneumonia Neurological Medical History: Reports: Hx Migraine. Denies: Hx Cerebrovascular Accident, Hx Seizures Renal/ Medical History: Reports: Hx Ovarian Cysts. Denies: Hx Peritoneal Dialysis Musculoskeltal Medical History: Denies Hx Arthritis, Reports Hx Fibromyalgia Past Surgical History: Reports: Hx Breast Surgery - L lumpectomy, Hx Section - x 2, Hx Cholecystectomy, Hx Gynecologic Surgery - LEEPx4, Hx Oral S urgery - wisdom teeth, Hx Tonsillectomy, Hx Tubal Ligation - Immunizations Immunizations up to date: Yes Hx Diphtheria, Pertussis, Tetanus Vaccination: Yes - 2017 Physical Exam - Vital signs Vitals: Temp Pulse Resp BP Pulse Ox 98 F 93 18 132/69 H 100 07/05/19 16:57 07/05/19 16:57 07/05/19 16:57 07/05/19 16:57 07/05/19 16:57 Course - Vital Signs Vital signs: Temp Pulse Resp BP Pulse Ox 98 F 93 18 132/69 H 100 07/05/19 16:57 07/05/19 16:57 07/05/19 16:57 07/05/19 16:57 07/05/19 16:57
[2019-07-05 17:53] LABS: APPEARANCE,URINE SLIGHTLY-CLOUDY; BILIRUBIN,URINE NEGATIVE (NEGATIVE); COLOR,URINE YELLOW; GLUCOSE, URINE NEGATIVE (NEGATIVE); KETONES,URINE NEGATIVE (NEGATIVE); PROTEIN,URINE NEGATIVE (NEGATIVE); UROBILINOGEN,URINE NEGATIVE mg/dL (<2.0)
--- NOTE | 2019-07-05 17:56 | RADIOLOGY REPORT (SQ) ---
EXAM DESCRIPTION: CT ABD/PELVIS NO ORAL OR IV COMPLETED DATE/TIME: 07/05/2019 5:31 pm REASON FOR STUDY: Left flank pain COMPARISON: 11/21/2018 TECHNIQUE: CT scan of the abdomen and pelvis performed without intravenous or oral contrast. Images reviewed with lung, soft tissue, and bone windows. Reconstructed coronal and sagittal MPR images revi ewed. All images stored on PACS. All CT scanners at this facility use dose modulation, iterative reconstruction, and/or weight based d osing when appropriate to reduce radiation dose to as low as reasonably achievable (ALARA). [facility]: Dose Right [facility]: CareDose [facility]: Dose Right [facility]: Teradose 4D [facility]: Smart [employer] RADIATION DOSE: CT Rad equipment meets quality standard of care and radiation dose reduction techniq ues were employed. CTDIvol: 7.0 mGy. DLP: 339 mGy-cm.mGy. LIMITATIONS: None. FINDINGS: LOWER CHEST: No significant findings. No nodules or infiltrates. NON-CONTRASTED LIVER, SPLEEN, ADRENALS: Evaluation limited by lack of IV contrast. No identified sign ificant masses. PANCREAS: No masses. No peripancreatic inflammatory changes. GALLBLADDER: Surgically absent. RIGHT KIDNEY AND URETER: No suspicious masses. Assessment limited by lack of IV contrast. No signif icant calcifications. No hydronephrosis or hydroureter. LEFT KIDNEY AND URETER: No suspicious masses. Assessment limited by lack of IV contrast. No signifi cant calcifications. No hydronephrosis or hydroureter. AORTA AND RETROPERITONEUM: No aneurysm. No retroperitoneal masses or adenopathy. BOWEL AND PERITONEAL CAVITY: Mild diverticulosis with no associated inflammation. APPENDIX: Not identified. PELVIS, BLADDER, AND ABDOMINAL WALL:No abnormal masses. No free fluid. Bladder normal. BONES: No significant findings. OTHER: No other significant finding. IMPRESSION: Mild diverticulosis coli. No urinary pathology. COMMENT: Quality ID # [id number]: Final reports with documentation of one or more dose reduction techniques (e.g., Automated exposure control, adjustment of the mA and/or kV according to patient size, use of iterative reconstruction technique) TECHNICAL DOCUMENTATION: JOB ID: [id number] 2010 [employer] All Rights Reserved Reading location - IP/workstation name: [email or web address]
[2019-07-05] MEDS ORDERED: HYDROMORPHONE HCL INJ/PF 2 MG/ML AMPULE IV ONE (18:15)
--- NOTE | 2019-07-05 18:21 | ER Document Report ---
ED General - General Chief Complaint: Flank Pain Stated Complaint: POSSIBLE LEFT FLANK PAIN Time Seen by Provider: 07/05/19 17:07 Mode of Arrival: Ambulatory Information source: Patient Notes: 34-year-old black female arrives with her and son with chief complaint of left CVA left flank pain radiating to her left groin since the a.m. hours. Patient denies any prior history of any recent UTIs or kidney stones. Both her mother and father have a history of kidney stones. is designated deliver driver. Patient is good historian. She denies any hematuria or trauma fever chills cough cold but does admit to urgency and dysuria. TRAVEL OUTSIDE OF THE [place] IN LAST 30 DAYS: No - HPI Onset: This morning Onset/Duration: Sudden Quality of pain: Stabbing Severity: Severe Pain Level: 5 Associated symptoms: Other - Dysuria Exacerbated by: Movement Relieved by: Denies Similar symptoms previously: No Recently seen / treated by doctor: No - Related Data Allergies/Adverse Reactions: Bee stings Allergy (Severe, Uncoded 07/05/19 17:06) Hives, swelling cherries Allergy (Uncoded 07/05/19 17:06) hives/itch, throat closes Past Medical History - General Information source: Patient - Social History Smoking Status: Current Every Day Smoker Cigarette use (# per day): Yes Chew tobacco use (# tins/day): No Smoking Education Provided: Yes Frequency of alcohol use: Social Drug Abuse: None Family History: Reviewed & Not Pertinent, Malignancy - Strong family history breast cancer Patient has suicidal ideation: No Patient has homicidal ideation: No - Past Medical History Cardiac Medical History: Denies: Hx Coronary Artery Disease, Hx Heart Attack, Hx Hypertension - Low Pulmonary Medical History: Denies: Hx Asthma, Hx Bronchitis, Hx COPD, Hx Pneumonia Neurological Medical History: Reports: Hx Migraine. Denies: Hx Cerebrovascular Accident, Hx Seizures Renal/ Medical History: Reports: Hx Ovarian Cysts. Denies: Hx Peritoneal Dialysis Musculoskeletal Medical History: Denies Hx Arthritis, Reports Hx Fibromyalgia Past Surgical History: Reports: Hx Breast Surgery - L lumpectomy, Hx Section - x 2, Hx Cholecystectomy, Hx Gynecologic Surgery - LEEPx4, Hx Oral S urgery - wisdom teeth, Hx Tonsillectomy, Hx Tubal Ligation - Immunizations Immunizations up to date: Yes Hx Diphtheria, Pertussis, Tetanus Vaccination: Yes - 2017 Review of Systems - Review of Systems Constitutional: No symptoms reported EENT: No symptoms reported Cardiovascular: No symptoms reported Respiratory: No symptoms reported Gastrointestinal: See HPI, Abdominal pain Genitourinary: See HPI, Dysuria, Frequency, Urgency Female Genitourinary: No symptoms reported Musculoskeletal: No symptoms reported Skin: No symptoms reported Hematologic/Lymphatic: No symptoms reported Neurological/Psychological: No symptoms reported Physical Exam - Vital signs Vitals: Temp Pulse Resp BP Pulse Ox 98 F 93 18 132/69 H 100 07/05/19 16:57 07/05/19 16:57 07/05/19 16:57 07/05/19 16:57 07/05/19 16:57 Interpretation: Normal - General General appearance: Alert - HEENT Head: Normocephalic Eyes: Normal Conjunctiva: Normal Cornea: Normal Extraocular movements intact: Yes Eyelashes: Normal Pupils: PERRL Sinus: Normal Nasal: Normal Mouth/Lips: Normal Mucous membranes: Normal Pharynx: Normal Neck: Normal - Respiratory Respiratory status: No respiratory distress Chest status: Nontender Breath sounds: Normal Chest palpation: Normal - Cardiovascular Rhythm: Regular Heart sounds: Normal auscultation Murmur: No Friction rub: No Jitendra's crunch: No Course - Vital Signs Vital signs: Temp Pulse Resp BP Pulse Ox 98 F 93 18 132/69 H 100 07/05/19 16:57 07/05/19 16:57 07/05/19 16:57 07/05/19 16:57 07/05/19 16:57 - Laboratory Laboratory results interpreted by me: 07/05/19 17:15 Urine Blood MODERATE H - Diagnostic Test Radiology reviewed: Reports reviewed Critical Care Note - Critical Care Note Total time excluding time spent on procedures (mins): 90 Comments: Advised patient of the negative call on the CT scan but also Nithin on a positive kidney stone at the [facility] on the left. Patient was complaining of left flank pain. I advised patient to follow-up with urologist. Patient much improved after medications and IV fluids Discharge - Discharge Clinical Impression: Kidney calculi, Diverticulosis of colon Condition: Good Disposition: HOME, SELF-CARE Additional Instructions: follow up with urologist and with personal doctor this week return to ER as needed take medicines as directed encourage fluids and off work as directed Prescriptions: Ciprofloxacin HCl [Cipro 500 mg Tablet] 500 mg PO BID #20 tablet Tamsulosin HCl [Flomax 0.4 mg Cap.sr] 0.4 mg PO DAILY #7 cap.sr.24h Oxycodone HCl/Acetaminophen [Percocet 5-325 mg Tablet] 1 tab PO TID #15 tablet Forms: Return to Work
[2019-07-05 18:47] LABS: ABSOLUTE BASOPHILS # (AUTO) 0.1 10^3/uL (0.0-0.2); ABSOLUTE EOSINOPHILS # (AUTO) 0.1 10^3/uL (0.0-0.6); ABSOLUTE LYMPHOCYTES (AUTO) 2.1 10^3/uL (0.5-4.7); ABSOLUTE MONOCYTES (AUTO) 0.7 10^3/uL (0.1-1.4); BASOPHILS % (AUTO) 0.9 % (0-2); EOSINOPHILS % (AUTO) 1.1 % (0-6); HEMATOCRIT 44.9 % (36.0-47.0); LYMPHOCYTES % (AUTO) 26.8 % (13-45); MEAN CORPUSCULAR HEMOGLOBIN 28.8 pg (27.0-33.4); MEAN CORPUSCULAR HGB CONC 33.4 g/dL (32.0-36.0); MEAN CORPUSCULAR VOLUME 86 fl (80-97); MONOCYTES % (AUTO) 8.2 % (3-13); PLATELET COUNT 312 10^3/uL (150-450); RED BLOOD COUNT 5.21 10^6/uL (3.72-5.28); TOTAL CELLS COUNTED % (AUTO) 100 %
[2019-07-05 19:04] LABS: ALBUMIN 4.8 g/dL (3.5-5.0); ALKALINE PHOSPHATASE 59 U/L (38-126); ANION GAP 11 (5-19); ASPARTATE AMINO TRANSFERASE 24 U/L (14-36); BILIRUBIN,DIRECT 0.2 mg/dL (0.0-0.4); BILIRUBIN,TOTAL 0.4 mg/dL (0.2-1.3); BLOOD UREA NITROGEN 11 mg/dL (7-20); CALCIUM 9.8 mg/dL (8.4-10.2); CARBON DIOXIDE 28 mmol/L (22-30); CHLORIDE 101 mmol/L (98-107); GLUCOSE 81 mg/dL (75-110); POTASSIUM 4.2 mmol/L (3.6-5.0); TOTAL PROTEIN 8.2 g/dL (6.3-8.2)
[2019-07-05 19:37] VITALS: BP 128/72
== END 2019-07-05 19:39 | disposition home or self-care (01) ==
LOC: ER 16:56
DX: N20.1 Calculus of ureter (principal); K57.90 Diverticulosis of intestine, part unspecified, without perforation or abscess without bleeding; R10.9 Unspecified abdominal pain; R30.0 Dysuria; R39.15 Urgency of urination; R35.0 Frequency of micturition; F17.210 Nicotine dependence, cigarettes, uncomplicated; Z91.018 Allergy to other foods; Z91.030 Bee allergy status
CPT/HCPCS: 36415; 85025; 81025; 80053; 81001; 74176; J1885; J1170; J2405; J7030

== ENCOUNTER 2019-12-03 13:54 | Emergency (ER) | payer SELFPAY ==
--- NOTE | 2019-12-03 15:37 | ER Document Report ---
ED Medical Screen (RME) - General Chief Complaint: Dizziness Stated Complaint: FATIGUE/LIGHTHEADENESS Time Seen by Provider: 12/03/19 15:22 Mode of Arrival: Ambulatory Information source: Patient Notes: Patient is a 34-year-old female comes emergency room complaining of multiple symptoms. Patient states that she went to bed last night feeling fine when she woke up this morning she felt okay but then as the day has gone on she is feeling worse and worse. Patient states that she started with a pressure in her head that has led to chest pain and discomfort feeling like her heart is beating out of her chest. Patient denies any history of cardiac problems. She only has a history of fibromyalgia but currently takes no medications. She does state that she just went back to work at [employer] this past and is the only different thing she has done. She has been out since October 22. Patient has had a cholecystectomy and a tubal ligation and 2 C-sections. She denies any abdominal pain or tenderness no vomiting or nausea. Physical examination: Patient is a well-nourished well-developed 34-year-old female no apparent distress on examination this afternoon. She does appear somewhat fatigued. Cardiac regular rate and rhythm with no murmurs noted. Rate is around 94 beats a minute. Vital signs: Patient's heart rate was around 92 to 94 bpm. Her saturation was 100% on room air. And blood pressure was stable. Lungs: Auscultation bases lungs show bilateral breath sounds of breath sounds increased throughout no rhonchi rales or wheeze heard. Abdomen: Bowel sounds present all 4 quads nontender to palpate. Neurologic: Patient is awake alert and oriented x4. A quick neuro assessment shows her to be intact. I have greeted and performed a rapid initial assessment of this patient. A comprehensive ED assessment and evaluation of the patient, analysis of test results and completion of the medical decision making process will be conducted by additional ED providers. Dictation of this chart was performed using voice recognition software; therefore, there may be some unintended grammatical errors. TRAVEL OUTSIDE OF THE [place] IN LAST 30 DAYS: No - Related Data Allergies/Adverse Reactions: Bee stings Allergy (Severe, Uncoded 07/05/19 17:06) Hives, swelling cherries Allergy (Uncoded 07/05/19 17:06) hives/itch, throat closes Home Medications: denies Past Medical History - Social History Chew tobacco use (# tins/day): No Frequency of alcohol use: Social Drug Abuse: None Family history: Reviewed & Not Pertinent - Past Medical History Cardiac Medical History: Denies: Hx Coronary Artery Disease, Hx Heart Attack, Hx Hypertension - Low Pulmonary Medical History: Denies: Hx Asthma, Hx Bronchitis, Hx COPD, Hx Pneumonia Neurological Medical History: Reports: Hx Migraine. Denies: Hx Cerebrovascular Accident, Hx Seizures Renal/ Medical History: Reports: Hx Ovarian Cysts. Denies: Hx Peritoneal Dialysis Musculoskeltal Medical History: Denies Hx Arthritis, Reports Hx Fibromyalgia Past Surgical History: Reports: Hx Breast Surgery - L lumpectomy, Hx Section - x 2, Hx Cholecystectomy, Hx Gynecologic Surgery - LEEPx4, Hx Oral Surgery - wisdom teeth, Hx Tonsillectomy, Hx Tubal Ligation - Immunizations Immunizations up to date: Yes Hx Diphtheria, Pertussis, Tetanus Vaccination: Yes - 2016 Physical Exam - Vital signs Vitals: Temp Pulse Resp BP Pulse Ox 98.4 F 98 16 131/78 H 100 12/03/19 14:01 12/03/19 14:01 12/03/19 14:01 12/03/19 14:01 12/03/19 14:01 Course - Vital Signs Vital signs: Temp Pulse Resp BP Pulse Ox 98.4 F 92 20 147/88 H 100 12/03/19 14:01 12/03/19 15:27 12/03/19 15:27 12/03/19 15:27 12/03/19 15:27
--- NOTE | 2019-12-03 16:11 | RADIOLOGY REPORT (SQ) ---
EXAM DESCRIPTION: CT HEAD WITHOUT IMAGES COMPLETED DATE/TIME: 12/03/2019 4:02 pm REASON FOR STUDY: [place]LL COMPARISON: 10/05/2014 TECHNIQUE: Axial images acquired through the brain without intravenous contrast. Images reviewed wi th bone, brain and subdural windows. Additional sagittal and coronal reconstructions were generated. Images stored on PACS. All CT scanners at this facility use dose modulation, iterative reconstruction, and/or weight based d osing when appropriate to reduce radiation dose to as low as reasonably achievable (ALARA). [facility]: Dose Right [facility]: CareDose [facility]: Dose Right [facility]: Teradose 4D [facility]: [employer] RADIATION DOSE: CT Rad equipment meets quality standard of care and radiation dose reduction techniq ues were employed. CTDIvol: 53.2 mGy. DLP: 964 mGy-cm. mGy. LIMITATIONS: None. FINDINGS: VENTRICLES: Normal size and contour. CEREBRUM: No masses. No hemorrhage. No midline shift. No evidence for acute infarction. Normal gra y/white matter differentiation. No areas of low density in the white matter. CEREBELLUM: No masses. No hemorrhage. No alteration of density. No evidence for acute infarction. EXTRAAXIAL SPACES: No fluid collections. No masses. ORBITS AND GLOBE: No intra- or extraconal masses. Normal contour of globe without masses. CALVARIUM: No fracture. PARANASAL SINUSES: No fluid or mucosal thickening. SOFT TISSUES: No mass or hematoma. OTHER: No other significant finding. IMPRESSION: NORMAL BRAIN CT WITHOUT CONTRAST. EVIDENCE OF ACUTE STROKE: NO. COMMENT: Quality ID # 436: Final reports with documentation of one or more dose reduction techniques (e.g., Automated exposure control, adjustment of the mA and/or kV according to patient size, use of iterative reconstruction technique) TECHNICAL DOCUMENTATION: JOB ID: [id number] 2010 [employer]- All Rights Reserved Reading location - IP/workstation name: [email or web address]
--- NOTE | 2019-12-03 16:16 | RADIOLOGY REPORT (SQ) ---
EXAM DESCRIPTION: CHEST SINGLE VIEW IMAGES COMPLETED DATE/TIME: 12/03/2019 4:08 pm REASON FOR STUDY: sob COMPARISON: 04/23/2019 EXAM PARAMETERS: NUMBER OF VIEWS: One view. TECHNIQUE: Single frontal radiographic view of the chest acquired. RADIATION DOSE: NA LIMITATIONS: None. FINDINGS: LUNGS AND PLEURA: No opacities, masses or pneumothorax. No pleural effusion. MEDIASTINUM AND HILAR STRUCTURES: No masses. Contour normal. HEART AND VASCULAR STRUCTURES: Heart normal in size. Normal vasculature. BONES: No acute findings. HARDWARE: None in the chest. OTHER: No other significant finding. IMPRESSION: NO ACUTE RADIOGRAPHIC FINDING IN THE CHEST. TECHNICAL DOCUMENTATION: JOB ID: [id number] 2010 [employer]- All Rights Reserved Reading location - IP/workstation name: [email or web address]
[2019-12-03] MEDS ORDERED: ACETAMINOPHEN 325 MG TABLET PO ONE (16:35)
[2019-12-03 16:46] LABS: ABSOLUTE BASOPHILS # (AUTO) 0.1 10^3/uL (0.0-0.2); ABSOLUTE LYMPHOCYTES (AUTO) 1.8 10^3/uL (0.5-4.7); ABSOLUTE MONOCYTES (AUTO) 0.6 10^3/uL (0.1-1.4); ABSOLUTE NEUT (AUTO) 7.4 10^3/uL (1.7-8.2); BASOPHILS % (AUTO) 0.5 % (0-2); EOSINOPHILS % (AUTO) 0.2 % (0-6); HEMATOCRIT 47.2 % (36.0-47.0); HEMOGLOBIN 15.9 g/dL (12.0-15.5); LYMPHOCYTES % (AUTO) 18.5 % (13-45); MEAN CORPUSCULAR HEMOGLOBIN 29.4 pg (27.0-33.4); MEAN CORPUSCULAR HGB CONC 33.7 g/dL (32.0-36.0); MEAN CORPUSCULAR VOLUME 87 fl (80-97); MONOCYTES % (AUTO) 6.3 % (3-13); PLATELET COUNT 328 10^3/uL (150-450); RED BLOOD COUNT 5.41 10^6/uL (3.72-5.28); SEGMENTED NEUTROPHILS % (AUTO) 74.5 % (42-78); TOTAL CELLS COUNTED % (AUTO) 100 %; WHITE BLOOD COUNT 9.9 10^3/uL (4.0-10.5)
[2019-12-03 16:52] LABS: APPEARANCE,URINE CLEAR; BILIRUBIN,URINE NEGATIVE (NEGATIVE); COLOR,URINE STRAW; GLUCOSE, URINE NEGATIVE (NEGATIVE); KETONES,URINE NEGATIVE (NEGATIVE); PROTEIN,URINE NEGATIVE (NEGATIVE); URINE SPECIFIC GRAVITY 1.006; UROBILINOGEN,URINE NEGATIVE mg/dL (<2.0)
[2019-12-03 17:06] LABS: ALBUMIN 5.1 g/dL (3.5-5.0); ALKALINE PHOSPHATASE 69 U/L (38-126); ANION GAP 7 (5-19); ASPARTATE AMINO TRANSFERASE 23 U/L (14-36); BILIRUBIN,TOTAL 0.4 mg/dL (0.2-1.3); BLOOD UREA NITROGEN 6 mg/dL (7-20); CALCIUM 9.7 mg/dL (8.4-10.2); CARBON DIOXIDE 28 mmol/L (22-30); CHLORIDE 102 mmol/L (98-107); GLUCOSE 85 mg/dL (75-110); POTASSIUM 4.3 mmol/L (3.6-5.0); TOTAL PROTEIN 8.5 g/dL (6.3-8.2)
--- NOTE | 2019-12-03 17:50 | ER Document Report ---
HPI - HPI Patient complains to provider of: Fatigue Time Seen by Provider: 12/03/19 15:22 Pain Level: 4 Context: This 34-year-old female with a history of fibromyalgia who presented to the emergency room today with a history of fatigue slightly lightheaded today. She just went back to work yesterday after being out 3 months she works at [employer]. She has no nausea no vomiting no fever no cough no congestion Associated Symptoms: None Exacerbated by: Denies Relieved by: Denies Similar symptoms previously: Yes Recently seen / treated by doctor: No - CONSTITUTIONAL Constitutional: DENIES: Fever, Chills - REPRODUCTIVE LMP: tubal Reproductive: DENIES: : Past Medical History - General Information source: Patient - Social History Smoking Status: Current Every Day Smoker Chew tobacco use (# tins/day): No Frequency of alcohol use: Social Drug Abuse: None Family History: Reviewed & Not Pertinent, Malignancy - Strong family history breast cancer Patient has homicidal ideation: No - Past Medical History Cardiac Medical History: Denies: Hx Coronary Artery Disease, Hx Heart Attack, Hx Hypertension - Low Pulmonary Medical History: Denies: Hx Asthma, Hx Bronchitis, Hx COPD, Hx Pneumonia Neurological Medical History: Reports: Hx Migraine. Denies: Hx Cerebrovascular Accident, Hx Seizures Renal/ Medical History: Reports: Hx Ovarian Cysts. Denies: Hx Peritoneal Dialysis Musculoskeletal Medical History: Denies Hx Arthritis, Reports Hx Fibromyalgia Past Surgical History: Reports: Hx Breast Surgery - L lumpectomy, Hx Section - x 2, Hx Cholecystectomy, Hx Gynecologic Surgery - LEEPx4, Hx Oral Surgery - wisdom teeth, Hx Tonsillectomy, Hx Tubal Ligation - Immunizations Immunizations up to date: Yes Hx Diphtheria, Pertussis, Tetanus Vaccination: Yes - 2017 Vertical Provider Document - CONSTITUTIONAL Agree With Documented VS: Yes - INFECTION CONTROL TRAVEL OUTSIDE OF THE [place] IN LAST 30 DAYS: No - HEENT HEENT: Atraumatic, Conjuctival Injection - NECK Neck: Normal Inspection - RESPIRATORY Respiratory: Breath Sounds Normal, No Respiratory Distress - CARDIOVASCULAR Cardiovascular: Regular Rate, Regular Rhythm - GI/ABDOMEN Gastrointestinal: Abdomen Soft, No Organomegaly - BACK Back: Normal Inspection - MUSCULOSKELETAL/EXTREMETIES Musculoskeletal/Extremeties: MAEW - NEURO Level of Consciousness: Awake, Alert - DERM Integumentary: Warm, Dry Course - Re-evaluation Re-evalutation: 12/03/19 17:48 No nausea no vomiting generalized fatigue this morning lightheaded felt scantly better after she ate just went back to work yesterday after being off for an extended period of time. She does have a history of fibromyalgia. She is ambulatory with a rhythmic and steady gait. Awake alert oriented x4. - Vital Signs Vital signs: Temp Pulse Resp BP Pulse Ox 98.4 F 92 20 147/88 H 100 12/03/19 14:01 12/03/19 15:27 12/03/19 15:27 12/03/19 15:27 12/03/19 15:27 - Laboratory Result Diagrams: 12/03/19 16:00 12/03/19 16:00 Laboratory results interpreted by me: 12/03/19 12/03/19 12/03/19 16:00 16:00 16:00 RBC 5.41 H Hgb 15.9 H Hct 47.2 H RDW 15.0 H BUN 6 L Total Protein 8.5 H Albumin 5.1 H Urine Blood MODERATE H Discharge - Discharge Clinical Impression: Malaise Condition: Good Disposition: HOME, SELF-CARE Additional Instructions: Increase fluid intake. Rest. Stay well-hydrated. Maintain social distancing. Be sure to eat 3 good meals a day. Follow-up with private doctor in 1 to 2 days for final radiology readings please return to the emergency room for any change worsening condition. Follow up with private M.D. for all other routine health care needs.
[2019-12-03 18:03] VITALS: BP 117/72
--- NOTE | 2019-12-03 21:02 | EKG REPORT ---
SEVERITY:- NORMAL ECG - SINUS RHYTHM : Confirmed by: Jeff Calles MD 03-Dec-2019 21:02:19
== END 2019-12-03 18:03 | disposition home or self-care (01) ==
LOC: ER 13:54
DX: R53.81 Other malaise (principal); R42 Dizziness and giddiness; F17.200 Nicotine dependence, unspecified, uncomplicated
CPT/HCPCS: 36415; 70450; 71045; 80053; 81001; 81025; 84484; 85025; 93005; 93010; 99284

== ENCOUNTER 2020-01-24 12:25 | Emergency (ER) | payer SELFPAY ==
[2020-01-24 12:33] VITALS: BP 131/84
[2020-01-24] MEDS ORDERED: KETOROLAC TROMETHAMINE 60 MG/2 ML SDV IM ONE (12:39)
--- NOTE | 2020-01-24 12:46 | ER Document Report ---
ED Neck/Back Problem - General Chief Complaint: Back Pain Stated Complaint: BACK PAIN Time Seen by Provider: 01/24/20 12:26 Mode of Arrival: Wheelchair Information source: Patient Notes: 35-year-old female presents to ED for complaint of sharp stabbing pain in the right upper back. She states it radiates up and down the chest. Lungs are clear respirations regular nonlabored pulses 88 and regular. He does have a history of fibromyalgia. She states it is extremely bad at times and gets her so she gets "stuck on a spot "she states she was on gabapentin for her fibromyalgia but now she is on the CBD oil. She states she goes to [facility] for her chronic pain REVIEW OF SYSTEMS: CONSTITUTIONAL : Denies fever, chills, or sweats. Denies recent illness. EENT: Denies eye, ear, throat, or mouth pain or symptoms. Denies nasal or sinus congestion. CARDIOVASCULAR: Denies chest pain. RESPIRATORY: Patient denies any cough or shortness of breath. She denies any injuries. She does have tenderness to the upper right back, denies any chest pain GASTROINTESTINAL: Denies abdominal pain. Denies nausea, vomiting, or diarrhea. Denies constipation. GENITOURINARY: Denies difficulty urinating, painful urination, burning, frequency, or blood in urine. FEMALE GENITOURINARY: Denies vaginal bleeding, abnormal or irregular periods. MUSCULOSKELETAL: Right upper back pain. She does have a history of fibromyalgia. Pain to palpation to the bra line from the center to the axilla, lungs are completely clear patient has full range of motion to both shoulders and her back SKIN: Denies rash or skin lesions. HEMATOLOGIC : Denies easy bruising or bleeding. LYMPHATIC: Denies swollen, enlarged glands. NEUROLOGICAL: Denies altered mental status or loss of consciousness. Denies headache. Denies weakness or paralysis or loss of use of either side. Denies problems with gait or speech. Denies sensory or motor loss. PSYCHIATRIC: Denies anxiety or stress or depression. ALL OTHER SYSTEMS REVIEWED AND NEGATIVE. VITAL SIGNS: Within normal limits. GENERAL: No acute distress, non-toxic appearance. HEAD: Normal with no signs of head trauma. EYES: PERRLA, EOMI, conjunctiva normal, no discharge. EARS: Hearing grossly intact. NOSE: Normal. THROAT: Oropharynx is normal. NECK: Normal range of motion, no tenderness, supple, no lymphadenopathy, No a denopathy, no JVD. CHEST: Clear breath sounds bilaterally. No wheezes, rales, or rhonchi. CARDIAC: Regular rate and rhythm. S1 and S2, without murmurs, gallops, or rubs. VASCULAR: No Edema. Peripheral pulses normal and equal in all extremities. ABDOMEN: Normal and soft with no tenderness, no masses or pulsatile masses. GASTROINTESTINAL: Bowel sounds normal GENITOURINARY: Normal, No tenderness LYMPATHTIC: No lymphadenopathy noted. MUSCULOSKELETAL: Good range of motion of all major joints. Extremities without clubbing, cyanosis or edema. Patient complains of tenderness to palpation to the right mid back from the center of her back to the line of her axilla. It is just about the bra line. There is no rash there is no brothers there is no injuries. Patient states it just started today but she has had in the past. She does have a history of fibromyalgia and is on chronic pain management. She states she has done nothing to injure her back she is not been on any trips she has not had any surgeries. Pulse is 88 regular. Patient has full range of motion of both shoulders. Had no pain or wincing with full range of motion of both shoulders. NEUROLOGICAL: Alert and oriented x 3. No focal sensory or strength deficits. Speech normal. Follows commands appropriately. PSYCHIATRIC: Normal Affect, judgement and mood. SKIN: Normal appearance with no rashes or lesions. TRAVEL OUTSIDE OF THE [place] IN LAST 30 DAYS: No - HPI Patient complains to provider of: Pain, Upper back - right Onset: Other - 4 days Onset: Chronic - Has chronic fibromyalgia this pain has come and gone for the last 4 days Timing: Waxing and waning Quality of pain: Sharp, Stabbing Severity: Severe Pain Level: 5 Associated symptoms: Upper back pain - Right upper back. denies: Constipation, Fever, Incontinence, Like prior neck/back pain, Motor loss, Numbness/tingling, Radiation to arm, Radiation to chest, Radiation to leg, Sensory loss, Sweaty, Unable to urinate, Lower back pain Exacerbated by: Nothing Relieved by: Nothing Similar symptoms previously: Yes Recently seen / treated by doctor: No - Related Data Allergies/Adverse Reactions: Bee stings Allergy (Severe, Uncoded 01/24/20 12:31) Hives, swelling cherries Allergy (Uncoded 01/24/20 12:31) hives/itch, throat closes Past Medical History - General Information source: Patient - Social History Smoking Status: Current Every Day Smoker Cigarette use (# per day): Yes - 1/2 pack/day Chew tobacco use (# tins/day): No Frequency of alcohol use: Social - Weekly Drug Abuse: Marijuana - And CBD oil Family History: Reviewed & Not Pertinent, Malignancy - Strong family history breast cancer Patient has suicidal ideation: No Patient has homicidal ideation: No - Past Medical History Cardiac Medical History: Reports: None Pulmonary Medical History: Reports: None EENT Medical History: Reports: None Neurological Medical History: Reports: Hx Migraine Endocrine Medical History: Reports: None Renal/ Medical History: Reports: Hx Ovarian Cysts Malignancy Medical History: Reports: None GI Medical History: Reports: None Musculoskeletal Medical History: Reports Hx Fibromyalgia Skin Medical History: Reports None Psychiatric Medical History: Reports: None Traumatic Medical History: Reports: None Past Surgical History: Reports: Hx Breast Surgery - L lumpectomy, Hx Section - x 2, Hx Cholecystectomy, Hx Gynecologic Surgery - LEEPx4, Hx Oral Surgery - wisdom teeth, Hx Tonsillectomy, Hx Tubal Ligation - Immunizations Immunizations up to date: Yes Hx Diphtheria, Pertussis, Tetanus Vaccination: Yes - 2016 Physical Exam - Vital signs Vitals: Temp Pulse Resp BP Pulse Ox 99.0 F 103 H 16 131/84 H 96 01/24/20 12:30 01/24/20 12:30 01/24/20 12:30 01/24/20 12:30 01/24/20 12:30 Course - Vital Signs Vital signs: Temp Pulse Resp BP Pulse Ox 99.0 F 88 16 131/84 H 96 01/24/20 12:30 01/24/20 12:39 01/24/20 12:30 01/24/20 12:30 01/24/20 12:30 Discharge - Discharge Clinical Impression: Upper back pain on right side Condition: Stable Disposition: HOME, SELF-CARE Additional Instructions: Your chest x-ray is negative. I have treated you with ibuprofen in the emergency room and we will send you home with a prescription for Flexeril. Follow-up with your primary care and with your pain management. MUSCLE RELAXERS: Muscle relaxing medications are usually prescribed for acute muscle spasm or injury to the neck and back. They are often combined with antiinflammatory pain medication for increased relief. You may stop the muscle relaxer when the pain and stiffness have improved. Start the medication again if spasms recur. Muscle relaxers may cause drowsiness, especially with the first dose. Do not operate machinery or drive while under the effects of the medication. Most muscle relaxers last up to 24 hours. Do not combine the medication with alcohol. ICE PACKS: Apply ice packs frequently against the painful area. Many different schedules are recommended, such as "20 minutes on, 20 minutes off" or "one hour ice, two hours rest." If you need to work, you may need to go longer between ice treatments. You should plan to have the area ice packed AT LEAST one fourth of the time. The ice should be applied over the wrap, tape, or splint, or over a layer of cloth -- not directly against the skin. Some ice bags have a built-in cloth and can be put directly on the skin. WARM PACKS: After approximately two days, apply gentle heat (such as a heating pad or hot water bottle) for about 20 to 30 minutes about every two hours -- at least four times daily. Warmth and elevation will help you make a more rapid recovery, and will ease the pain considerably. Do not use HOT heat, and never apply heat for longer than 30 minutes. The continuous heat can invisibly damage skin and muscles -- even when no burn is seen on the surface. Damaged muscles can make you MORE sore. Ibuprofen Ibuprofen is an excellent, safe drug for pain control. In addition, it has potent antiinflammatory effects which are beneficial, especially in the treatment of injuries, arthritis, or tendonitis. It's best to take ibuprofen with food. Persons with ulcer disease or allergy to aspirin should notify their physician of this before taking ibuprofen. Take the medication exactly as prescribed. Don't take additional doses unless instructed to do so by your doctor. If you develop wheezing, shortness of breath, hives, faintness, stomach pain, vomiting, or dark black stools, return for re-evaluation at once. FOLLOW-UP CARE: If you have been referred to a physician for follow-up care, call the physicians office for an appointment as you were instructed or within the next two days. If you experience worsening or a significant change in your symptoms, notify the physician immediately or return to the Emergency Department at any time for re-evaluation. Prescriptions: Cyclobenzaprine HCl [Flexeril 10 mg Tablet] 10 mg PO TIDP PRN #15 tab PRN Reason: Forms: Elevated Blood Pressure, Smoking Cessation Education
--- NOTE | 2020-01-24 13:02 | RADIOLOGY REPORT (SQ) ---
EXAM DESCRIPTION: CHEST 2 VIEWS IMAGES COMPLETED DATE/TIME: 01/24/2020 12:49 pm REASON FOR STUDY: right upper back pain COMPARISON: 12/03/2019 EXAM PARAMETERS: NUMBER OF VIEWS: two views TECHNIQUE: Digital Frontal and Lateral radiographic views of the chest acquired. RADIATION DOSE: NA LIMITATIONS: none FINDINGS: LUNGS AND PLEURA: No opacities, masses or pneumothorax. No pleural effusion. MEDIASTINUM AND HILAR STRUCTURES: No masses or contour abnormalities. HEART AND VASCULAR STRUCTURES: Heart normal size. No evidence for failure. BONES: No acute findings. HARDWARE: None in the chest. OTHER: No other significant finding. IMPRESSION: NO ACUTE RADIOGRAPHIC FINDING IN THE CHEST. TECHNICAL DOCUMENTATION: JOB ID: [id number] 2010 [employer]- All Rights Reserved Reading location - IP/workstation name: [email or web address]
== END 2020-01-24 14:05 | disposition home or self-care (01) ==
LOC: ER 12:25
DX: M54.6 Pain in thoracic spine (principal); F17.210 Nicotine dependence, cigarettes, uncomplicated; Z90.49 Acquired absence of other specified parts of digestive tract
CPT/HCPCS: 99284; 96372; 71046; J1885

== ENCOUNTER 2020-01-27 20:28 | Emergency (ER) | payer SELFPAY ==
[2020-01-27] MEDS ORDERED: OXYCODONE-ACETAMINOPHEN 5-325 MG TABLET PO ONE (21:00)
[2020-01-27] MEDS ORDERED: NORMAL SALINE 1000 ML 1,000 ML IV ONE (21:00)
--- NOTE | 2020-01-27 21:01 | ER Document Report ---
ED Medical Screen (RME) - General Chief Complaint: Back Pain Stated Complaint: BACK PAIN Time Seen by Provider: 01/27/20 20:51 Mode of Arrival: Wheelchair Information source: Patient Notes: Patient presents complaining of right upper back pain that radiates around to right side of chest for the past week. Patient was seen here for this complaint and then saw her primary doctor on Tuesday. Patient denies any cough or cold symptoms. Patient denies any urinary symptoms. Patient denies any fever. Patient reports pain is significantly worse with any type of movement. Patient reports a history of fibromyalgia and states that this is not typical of pain that she has had with her fibro-. I have greeted and performed a rapid initial assessment of this patient. A comprehensive ED assessment and evaluation of the patient, analysis of test results and completion of the medical decision making process will be conducted by additional ED providers. TRAVEL OUTSIDE OF THE [place] IN LAST 30 DAYS: No - Related Data Allergies/Adverse Reactions: Bee stings Allergy (Severe, Uncoded 01/24/20 12:31) Hives, swelling cherries Allergy (Uncoded 01/24/20 12:31) hives/itch, throat closes Past Medical History - Social History Family history: Reviewed & Not Pertinent - Past Medical History Cardiac Medical History: Denies: Hx Coronary Artery Disease, Hx Heart Attack, Hx Hypertension - Low Pulmonary Medical History: Denies: Hx Asthma, Hx Bronchitis, Hx COPD, Hx Pneumonia Neurological Medical History: Reports: Hx Migraine. Denies: Hx Cerebrovascular Accident, Hx Seizures Renal/ Medical History: Reports: Hx Ovarian Cysts. Denies: Hx Peritoneal Dialysis Musculoskeltal Medical History: Denies Hx Arthritis, Reports Hx Fibromyalgia Past Surgical History: Reports: Hx Breast Surgery - L lumpectomy, Hx Section - x 2, Hx Cholecystectomy, Hx Gynecologic Surgery - LEEPx4, Hx Oral Surgery - wisdom teeth, Hx Tonsillectomy, Hx Tubal Ligation - Immunizations Immunizations up to date: Yes Hx Diphtheria, Pertussis, Tetanus Vaccination: Yes - 2017 Physical Exam - Vital signs Vitals: Temp Pulse Resp BP Pulse Ox 98.3 F 114 H 19 114/78 99 01/27/20 20:33 01/27/20 20:33 01/27/20 20:33 01/27/20 20:33 01/27/20 20:33 - Cardiovascular Rhythm: Tachycardia Heart sounds: S1 appreciated, S2 appreciated - Back Back: Tender - Right upper thoracic back tenderness Course - Vital Signs Vital signs: Temp Pulse Resp BP Pulse Ox 98.3 F 114 H 19 114/78 99 01/27/20 20:33 01/27/20 20:33 01/27/20 20:33 01/27/20 20:33 01/27/20 20:33
--- NOTE | 2020-01-27 21:59 | RADIOLOGY REPORT (SQ) ---
EXAM DESCRIPTION: X-RAY CHEST- TWO VIEWS CLINICAL HISTORY: Upper back and chest pain COMPARISON: January 24, 2020 TECHNIQUE: 2 views of the chest FINDINGS: There are no discrete air space infiltrates, pneumothoraces or pleural effusions. The pulmonary vascularity is normal. The cardiomediastinal silhouette is normal in size. No suspicious lytic or blastic osseous lesions are identified. IMPRESSION: There are no acute lung parenchymal findings.
[2020-01-27 22:34] LABS: ABSOLUTE BASOPHILS # (AUTO) 0.1 10^3/uL (0.0-0.2); ABSOLUTE EOSINOPHILS # (AUTO) 0.1 10^3/uL (0.0-0.6); ABSOLUTE LYMPHOCYTES (AUTO) 2.6 10^3/uL (0.5-4.7); ABSOLUTE MONOCYTES (AUTO) 0.9 10^3/uL (0.1-1.4); ABSOLUTE NEUT (AUTO) 10.6 10^3/uL (1.7-8.2); BASOPHILS % (AUTO) 0.4 % (0-2); EOSINOPHILS % (AUTO) 0.6 % (0-6); HEMATOCRIT 45.5 % (36.0-47.0); HEMOGLOBIN 15.6 g/dL (12.0-15.5); MEAN CORPUSCULAR HEMOGLOBIN 29.9 pg (27.0-33.4); MEAN CORPUSCULAR HGB CONC 34.2 g/dL (32.0-36.0); MEAN CORPUSCULAR VOLUME 87 fl (80-97); MONOCYTES % (AUTO) 6.6 % (3-13); PLATELET COUNT 335 10^3/uL (150-450); RED BLOOD COUNT 5.21 10^6/uL (3.72-5.28); RED CELL DISTRIBUTION WIDTH 14.4 % (11.5-14.0); SEGMENTED NEUTROPHILS % (AUTO) 74.4 % (42-78); TOTAL CELLS COUNTED % (AUTO) 100 %; WHITE BLOOD COUNT 14.3 10^3/uL (4.0-10.5)
[2020-01-27 22:54] LABS: ALBUMIN 4.8 g/dL (3.5-5.0); ALKALINE PHOSPHATASE 66 U/L (38-126); ANION GAP 9 (5-19); ASPARTATE AMINO TRANSFERASE 24 U/L (14-36); BILIRUBIN,DIRECT 0.3 mg/dL (0.0-0.4); BILIRUBIN,TOTAL 0.3 mg/dL (0.2-1.3); BLOOD UREA NITROGEN 10 mg/dL (7-20); CALCIUM 9.9 mg/dL (8.4-10.2); CARBON DIOXIDE 29 mmol/L (22-30); CHLORIDE 102 mmol/L (98-107); GLUCOSE 96 mg/dL (75-110); POTASSIUM 3.9 mmol/L (3.6-5.0)
[2020-01-28 00:36] LABS: APPEARANCE,URINE SLIGHTLY-CLOUDY; BILIRUBIN,URINE NEGATIVE (NEGATIVE); CALCIUM OXALATE CRYSTALS,URINE MODERATE /HPF; COLOR,URINE YELLOW; GLUCOSE, URINE NEGATIVE (NEGATIVE); KETONES,URINE NEGATIVE (NEGATIVE); LEUKOCYTE ESTERASE,URINE NEGATIVE (NEGATIVE); NITRITE,URINE NEGATIVE (NEGATIVE); PROTEIN,URINE NEGATIVE (NEGATIVE); URINE SPECIFIC GRAVITY 1.025; UROBILINOGEN,URINE NEGATIVE mg/dL (<2.0)
--- NOTE | 2020-01-28 00:45 | ER Document Report ---
ED Neck/Back Problem - General Chief Complaint: Back Pain Stated Complaint: BACK PAIN Time Seen by Provider: 01/27/20 20:51 Mode of Arrival: Wheelchair Information source: Patient Notes: 35-year-old female past medical history significant for fibromyalgia presents to the emergency room complaining of persistent right-sided upper back pain that she describes as sharp and stabbing that radiates to her ribs and shoulders for the past 6 days. Patient was seen in the emergency room on was discharged home on . Saw her primary care physician on Tuesday who prescribed her prednisone, naproxen, and more Flexeril. States she is taking all the medications without relief. She denies any trauma or injury to her back. She denies any chest pain, shortness of breath, no difficulty breathing. No recent travel. No COVID-19 exposure. States pain is worse with movement worse when taking a deep breath. No history of DVTs no history of PEs TRAVEL OUTSIDE OF THE [place] IN LAST 30 DAYS: No - Related Data Allergies/Adverse Reactions: Bee stings Allergy (Severe, Uncoded 01/24/20 12:31) Hives, swelling cherries Allergy (Uncoded 01/24/20 12:31) hives/itch, throat closes Past Medical History - General Information source: Patient - Social History Smoking Status: Current Every Day Smoker Frequency of alcohol use: Social Drug Abuse: Marijuana Family History: Reviewed & Not Pertinent, Malignancy - Strong family history breast cancer - Past Medical History Cardiac Medical History: Denies: Hx Coronary Artery Disease, Hx Heart Attack, Hx Hypertension - Low Pulmonary Medical History: Denies: Hx Asthma, Hx Bronchitis, Hx COPD, Hx Pneumonia Neurological Medical History: Reports: Hx Migraine. Denies: Hx Cerebrovascular Accident, Hx Seizures Renal/ Medical History: Reports: Hx Ovarian Cysts. Denies: Hx Peritoneal Dialysis Musculoskeletal Medical History: Denies Hx Arthritis, Reports Hx Fibromyalgia Past Surgical History: Reports: Hx Breast Surgery - L lumpectomy, Hx Section - x 2, Hx Cholecystectomy, Hx Gynecologic Surgery - LEEPx4, Hx Oral Eid rgery - wisdom teeth, Hx Tonsillectomy, Hx Tubal Ligation - Immunizations Immunizations up to date: Yes Hx Diphtheria, Pertussis, Tetanus Vaccination: Yes - 2016 Review of Systems - Review of Systems Constitutional: No symptoms reported EENT: No symptoms reported Cardiovascular: No symptoms reported Respiratory: No symptoms reported Musculoskeletal: Back pain Skin: No symptoms reported Neurological/Psychological: No symptoms reported -: Yes All other systems reviewed and negative Physical Exam - Vital signs Vitals: Temp Pulse Resp BP Pulse Ox 98.3 F 114 H 19 114/78 99 01/27/20 20:33 01/27/20 20:33 01/27/20 20:33 01/27/20 20:33 01/27/20 20:33 - General General appearance: Appears well, Alert In distress: Moderate - Respiratory Respiratory status: No respiratory distress Chest status: Nontender Breath sounds: Normal Chest palpation: Normal - Cardiovascular Rhythm: Tachycardia Heart sounds: Normal auscultation Murmur: No - Back Back: Normal, Tender - Tenderness on palpation to the right upper lateral aspect of her back. Nontender palpation over the thoracic or vertebral spines. There are some right sided lower muscle spasms palpated on palpation.. No: Deformity/step-off, CVA tenderness, Vertebra tenderness - Neurological Neuro grossly intact: Yes Cognition: Normal Orientation: AAOx4 Shae Coma Scale Eye Opening: Spontaneous Shae Coma Scale Verbal: Oriented Shae Coma Scale Motor: Obeys Commands Shae Coma Scale Total: 15 Speech: Normal Motor strength normal: LUE, RUE, LLE, RLE Sensory: Normal - Skin Skin Temperature: Warm Skin Moisture: Dry Skin Color: Normal Course - Re-evaluation Re-evalutation: 01/28/20 00:44 Patient with multiple visits for upper back pain that radiates around to her ribs with shortness of breath for the past 6 days. Has been seen in the emergency room as well as her primary care physician taking steroids, predn isone, and Flexeril without relief. Patient with elevated white count negative chest x-ray, tachycardic will get CT chest rule out any possible infiltrates or PEs. 01/28/20 00:45 01/28/20 00:46 01/28/20 02:19 Patient is resting comfortably with decreased pain. All test results including CAT scan was reviewed with the patient and family. She was counseled to continue with her prednisone, Flexeril, and steroids as prescribed by her primary care physician. Recommend follow-up with her primary care physician in 1 day. Patient was given strict return to the emergency room guidelines. Return for any new or worsening symptoms. All questions were answered. Patient verbalized understanding and agrees with plan of care. - Vital Signs Vital signs: Temp Pulse Resp BP Pulse Ox 98.2 F 75 16 111/72 99 01/28/20 02:57 01/28/20 02:57 01/28/20 02:57 01/28/20 02:57 01/28/20 02:57 - Laboratory Result Diagrams: 01/27/20 22:20 01/27/20 22:20 Laboratory results interpreted by me: 01/27/20 22:20 WBC 14.3 H Hgb 15.6 H RDW 14.4 H Absolute Neuts (auto) 10.6 H - Diagnostic Test Radiology reviewed: Reports reviewed Discharge - Discharge Clinical Impression: Back pain Qualifiers: Back pain location: thoracic back pain Chronicity: chronic Back pain laterality: right Qualified Code(s): M54.6 - Pain in thoracic spine Condition: Stable Disposition: HOME, SELF-CARE Instructions: Muscle Strain ([facility]), Upper Back Strain ([facility]) Additional Instructions: You have been seen in the Emergency Department (ED) today for back pain. Your workup and exam have not shown any acute abnormalities and you are likely suffering from muscle strain or possible problems with your discs, but there is no treatment that will fix your symptoms at this time. Please take all your medication that was prescribed by your primary care physician.. You should also purchase a local lidocaine cream such as "aspercreme with lidocaine" and use per bottle instructions to the affected area. Apply heat to the area as often as you are able. Continue to keep active and avoid prolonged periods of bed rest. Please follow up with your doctor as soon as possible regarding today's ED visit and your back pain. Return to the ED for worsening back pain, fever, weakness or numbness of either leg, or if you develop either (1) an inability to urinate or have bowel movements, or (2) loss of your ability to control your bathroom functions (if you start having "accidents"), or if you develop other new symptoms that concern you.concern you.
[2020-01-28 00:52] LABS: URINE AMPHETAMINES SCREEN NEGATIVE; URINE BARBITURATES SCREEN NEGATIVE; URINE BENZODIAZEPINES SCREEN NEGATIVE; URINE COCAINE SCREEN NEGATIVE; URINE METHADONE SCREEN NEGATIVE; URINE PHENCYCLIDINE SCREEN NEGATIVE
[2020-01-28 00:57] LABS: URINE MARIJUANA (THC) SCREEN UNCONFIRMED POSITIVE
--- NOTE | 2020-01-28 01:53 | RADIOLOGY REPORT (SQ) ---
EXAM DESCRIPTION: CT CHEST ANGIOGRAPHY WITHOUT THEN WITH IV CONTRAST COMPLETED DATE/TME: 01/28/2020 00:45 CLINICAL HISTORY: 35 years Female, dyspnea Comparison: CR, 01/27/20 Technique: IV contrast. Coronal and sagittal reformat. 3d reconstruction. This exam was performed according to our departmental dose-optimization program, which includes automated exposure control, adjustment of the mA and/or kV according to patient size and/or use of iterative reconstruction technique.[facility]: Dose Right [facility]: CareDose [facility]: Dose Right [facility]: Teradose 4D [facility]: [employer] LIMITATIONS: None Findings: No pulmonary embolus. No right ventricular strain. Clear lungs. Cholecystectomy. Inferior neck, axillae, mediastinum, airway, lymphatics, heart, vasculature, upper abdomen, and musculoskeleton appear otherwise unremarkable. Impression: No pulmonary embolus. No acute cardiopulmonary findings.
[2020-01-28 03:01] VITALS: BP 111/72
== END 2020-01-28 02:57 | disposition home or self-care (01) ==
LOC: ER 20:28
DX: M54.6 Pain in thoracic spine (principal); R07.81 Pleurodynia; F17.200 Nicotine dependence, unspecified, uncomplicated
CPT/HCPCS: 99285; 96360; 36415; 83690; 84703; 85025; 80053; 81001; 84484; 80307; 85379; 71046; 71275; J7030

== ENCOUNTER 2020-03-31 14:45 | Emergency (ER) | payer SELFPAY ==
--- NOTE | 2020-03-31 15:54 | ER Document Report ---
ED Medical Screen (RME) - General Chief Complaint: Back Pain Stated Complaint: BACK PAIN Time Seen by Provider: 03/31/20 15:47 Mode of Arrival: Wheelchair Information source: Patient Notes: 35-year-old female presented to ED for back pain to the upper back. She states the first week of January the chiropractor diagnosed her with herniated disc the T4-T5-T6. There are no thoracic 4 5 and 6 disc. She states the chiropractor told her to come to the emergency room immediately for any numbness and tingling and she has had numbness and tingling down the left side since Tuesday. She is also had spasms since Tuesday. She states she has had no bowel movement in the last 4 days. She states she has been taking Flexeril and hydrocodone by mouth. She denies any saddle anesthesia, any loss of control of bowel bladder, any loss of sensation to the legs. She states she ran out of her hydrocodone yesterday. I have greeted and performed a rapid initial assessment of this patient. A comprehensive ED assessment and evaluation of the patient, analysis of test results and completion of medical decision making process will be conducted by an additional ED providers. TRAVEL OUTSIDE OF THE [place] IN LAST 30 DAYS: No - Related Data Allergies/Adverse Reactions: Bee stings Allergy (Severe, Uncoded 01/24/20 12:31) Hives, swelling cherries Allergy (Uncoded 01/24/20 12:31) hives/itch, throat closes Past Medical History - Social History Family history: Reviewed & Not Pertinent - Past Medical History Cardiac Medical History: Denies: Hx Coronary Artery Disease, Hx Heart Attack, Hx Hypertension - Low Pulmonary Medical History: Denies: Hx Asthma, Hx Bronchitis, Hx COPD, Hx Pneumonia Neurological Medical History: Reports: Hx Migraine. Denies: Hx Cerebrovascular Accident, Hx Seizures Renal/ Medical History: Reports: Hx Ovarian Cysts. Denies: Hx Peritoneal Dialysis Musculoskeltal Medical History: Denies Hx Arthritis, Reports Hx Fibromyalgia Past Surgical History: Reports: Hx Breast Surgery - L lumpectomy, Hx Section - x 2, Hx Cholecystectomy, Hx Gynecologic Surgery - LEEPx4, Hx Oral Surgery - wisdom teeth, Hx Tonsillectomy, Hx Tubal Ligation - Immunizations Immunizations up to date: Yes Hx Diphtheria, Pertussis, Tetanus Vaccination: Yes - 2016 Physical Exam - Vital signs Vitals: Temp Pulse Resp BP Pulse Ox 98.0 F 110 H 20 134/81 H 98 03/31/20 15:39 03/31/20 15:39 03/31/20 15:39 03/31/20 15:39 03/31/20 15:39 Course - Vital Signs Vital signs: Temp Pulse Resp BP Pulse Ox 98.0 F 110 H 20 134/81 H 98 03/31/20 15:39 03/31/20 15:39 03/31/20 15:39 03/31/20 15:39 03/31/20 15:39
[2020-03-31 16:32] LABS: ABSOLUTE BASOPHILS # (AUTO) 0.1 10^3/uL (0.0-0.2); ABSOLUTE EOSINOPHILS # (AUTO) 0.1 10^3/uL (0.0-0.6); ABSOLUTE LYMPHOCYTES (AUTO) 2.8 10^3/uL (0.5-4.7); ABSOLUTE MONOCYTES (AUTO) 0.9 10^3/uL (0.1-1.4); ABSOLUTE NEUT (AUTO) 7.3 10^3/uL (1.7-8.2); APPEARANCE,URINE SLIGHTLY-CLOUDY; BASOPHILS % (AUTO) 0.6 % (0-2); BILIRUBIN,URINE NEGATIVE (NEGATIVE); COLOR,URINE YELLOW; GLUCOSE, URINE NEGATIVE (NEGATIVE); HEMATOCRIT 41.7 % (36.0-47.0); HEMOGLOBIN 14.2 g/dL (12.0-15.5); KETONES,URINE NEGATIVE (NEGATIVE); LEUKOCYTE ESTERASE,URINE NEGATIVE (NEGATIVE); MEAN CORPUSCULAR HEMOGLOBIN 29.9 pg (27.0-33.4); MEAN CORPUSCULAR VOLUME 88 fl (80-97); MONOCYTES % (AUTO) 7.7 % (3-13); NITRITE,URINE NEGATIVE (NEGATIVE); PLATELET COUNT 301 10^3/uL (150-450); PROTEIN,URINE NEGATIVE (NEGATIVE); RED BLOOD COUNT 4.76 10^6/uL (3.72-5.28); RED CELL DISTRIBUTION WIDTH 14.8 % (11.5-14.0); SEGMENTED NEUTROPHILS % (AUTO) 65.7 % (42-78); TOTAL CELLS COUNTED % (AUTO) 100 %; URINE SPECIFIC GRAVITY 1.023; UROBILINOGEN,URINE NEGATIVE mg/dL (<2.0); WHITE BLOOD COUNT 11.1 10^3/uL (4.0-10.5)
[2020-03-31 16:57] LABS: ALBUMIN 4.5 g/dL (3.5-5.0); ALKALINE PHOSPHATASE 63 U/L (38-126); ANION GAP 9 (5-19); ASPARTATE AMINO TRANSFERASE 21 U/L (14-36); BILIRUBIN,DIRECT 0.1 mg/dL (0.0-0.4); BILIRUBIN,TOTAL 0.4 mg/dL (0.2-1.3); BLOOD UREA NITROGEN 13 mg/dL (7-20); CALCIUM 9.7 mg/dL (8.4-10.2); CARBON DIOXIDE 30 mmol/L (22-30); CHLORIDE 99 mmol/L (98-107); GLUCOSE 97 mg/dL (75-110); POTASSIUM 3.6 mmol/L (3.6-5.0); TOTAL PROTEIN 7.3 g/dL (6.3-8.2)
--- NOTE | 2020-03-31 17:08 | RADIOLOGY REPORT (SQ) ---
EXAM DESCRIPTION: T SPINE AP/LAT IMAGES COMPLETED DATE/TIME: 03/31/2020 4:53 pm REASON FOR STUDY: See HPI back pain COMPARISON: None. NUMBER OF VIEWS: Two views. TECHNIQUE: AP and lateral radiographic images acquired of the thoracic spine. LIMITATIONS: None. FINDINGS: MINERALIZATION: Normal. ALIGNMENT: Mild scoliosis. VERTEBRAE: No fracture or bone lesion. Maintained height, normal segmentation. DISCS: No significant loss of height or significant narrowing. No large osteophytes. HARDWARE: None in the spine. MEDIASTINUM AND SOFT TISSUES: Normal heart size and aortic contour. No soft tissue abnormality. VISUALIZED LUNG MOLINA: Clear. OTHER: No other significant finding. IMPRESSION: Mild scoliosis. No acute finding. TECHNICAL DOCUMENTATION: JOB ID: [id number] 2010 [employer]- All Rights Reserved Reading location - IP/workstation name: [email or web address]
--- NOTE | 2020-03-31 19:46 | ER Document Report ---
ED Neck/Back Problem - General Chief Complaint: Back Pain Stated Complaint: BACK PAIN Time Seen by Provider: 03/31/20 15:47 Mode of Arrival: Wheelchair Information source: Patient Notes: 03/31/20 15:48 - Nursing Note by RACHEL NASH Num: [id number] : 1985 Patient Age: 35 Pt arrivers via wheelchair. PT states that she has been having back pain/spasms since January. pt states that she was told she has T4 and T5 bulging. Pt states that she is being seen by a chiropractor, she was advised that if she has numbness or tingling to come here. Pt states that she is having left leg and arm numbness that started yesterday. PT reports taking home [place] and other pain medications with no relief. ED Medical Screen ([facility]) - General Chief Complaint: Back Pain Stated Complaint: BACK PAIN Time Seen by Provider: 03/31/20 15:47 Mode of Arrival: Wheelchair Information source: Patient Notes: 35-year-old female presented to ED for back pain to the upper back. She states the first week of January the chiropractor diagnosed her with herniated disc the T4-T5-T6. There are no thoracic 4 5 and 6 disc. She states the chiropractor told her to come to the emergency room immediately for any numbness and tingling and she has had numbness and tingling down the left side since Tuesday. She is also had spasms since Tuesday. She states she has had no bowel movement in the last 4 days. She states she has been taking Flexeril and hydrocodone by mouth. She denies any saddle anesthesia, any loss of control of bowel bladder, any loss of sensation to the legs. She states she ran out of her hydrocodone yesterday. MY NOTES 35-year-old black female arrives with her friend whose last name is Doctor.. She began to have mid and upper back pain since January of this year. It became worse on Tuesday. Patient's pain became a 10 out of 10 she actually said is a 35. It is now a 7 out of 10. Her boyfriend Doctor Advises that he went and got a TENS unit from [facility] which helped her back pain considerably. Patient has been seeing the chiropractor who told her to come to the ER because she was having a right arm numbness and right leg numbness which has been present since Tuesday of last week. TRAVEL OUTSIDE OF THE [place] IN LAST 30 DAYS: No - HPI Patient complains to provider of: Pain, Upper back, Lower back Onset: Last week - Related Data Allergies/Adverse Reactions: Bee stings Allergy (Severe, Uncoded 01/24/20 12:31) Hives, swelling cherries Allergy (Uncoded 01/24/20 12:31) hives/itch, throat closes Past Medical History - General Information source: Patient - Social History Smoking Status: Current Every Day Smoker Cigarette use (# per day): Yes - 1/2 ppd Chew tobacco use (# tins/day): No Smoking Education Provided: Yes Frequency of alcohol use: Occasional Drug Abuse: None Lives with: Family Family History: Reviewed & Not Pertinent, Malignancy - Strong family history breast cancer Patient has suicidal ideation: No Patient has homicidal ideation: No - Past Medical History Cardiac Medical History: Denies: Hx Coronary Artery Disease, Hx Heart Attack, Hx Hypertension - Low Pulmonary Medical History: Denies: Hx Asthma, Hx Bronchitis, Hx COPD, Hx Pneumonia Neurological Medical History: Reports: Hx Migraine. Denies: Hx Cerebrovascular Accident, Hx Seizures Renal/ Medical History: Reports: Hx Ovarian Cysts. Denies: Hx Peritoneal Di alysis Musculoskeletal Medical History: Denies Hx Arthritis, Reports Hx Fibromyalgia Past Surgical History: Reports: Hx Breast Surgery - L lumpectomy, Hx Section - x 2, Hx Cholecystectomy, Hx Gynecologic Surgery - LEEPx4, Hx Oral Surgery - wisdom teeth, Hx Tonsillectomy, Hx Tubal Ligation - Immunizations Immunizations up to date: Yes Hx Diphtheria, Pertussis, Tetanus Vaccination: Yes - 2016 Review of Systems - Review of Systems Constitutional: No symptoms reported EENT: No symptoms reported Cardiovascular: No symptoms reported Respiratory: No symptoms reported Gastrointestinal: No symptoms reported Genitourinary: No symptoms reported Female Genitourinary: No symptoms reported Musculoskeletal: See HPI, Back pain Skin: No symptoms reported Hematologic/Lymphatic: No symptoms reported Neurological/Psychological: See HPI, Numbness Physical Exam - Vital signs Vitals: Temp Pulse Resp BP Pulse Ox 98.0 F 110 H 20 134/81 H 98 03/31/20 15:39 03/31/20 15:39 03/31/20 15:39 03/31/20 15:39 03/31/20 15:39 Interpretation: Hypertensive, Tachycardic - General General appearance: Appears well, Alert - HEENT Head: Normocephalic, Atraumatic Eyes: Normal Pupils: PERRL - Respiratory Respiratory status: No respiratory distress Chest status: Nontender Breath sounds: Normal Chest palpation: Normal - Cardiovascular Rhythm: Regular Heart sounds: Normal auscultation Murmur: No - Abdominal Inspection: Normal Distension: No distension Bowel sounds: Normal Tenderness: Nontender Organomegaly: No organomegaly - Back Back: Normal, Tender - Upper thoracic midthoracic back pain on range of motion palpation. Patient is using a modified cane in order to ambulate. Patient has a history of scoliosis which she knows about and x-rays today reveal scoliosis - Extremities General upper extremity: Normal inspection, Nontender, Normal color, Normal ROM, Normal temperature, Other - Patient does admit to numbness of her right upper extremity General lower extremity: Normal inspection, Nontender, Normal color, Normal ROM, Normal temperature, Normal weight bearing, Other - Patient does admit to numbness of her right lower extremity with pulses that are full to dorsalis pedis posterior tibialis. No: Dutch's sign - Neurological Neuro grossly intact: Yes Cognition: Normal Orientation: AAOx4 [place] Coma Scale Eye Opening: Spontaneous [place]ae Coma Scale Verbal: Oriented Shae Coma Scale Motor: Obeys Commands [place] Coma Scale Total: 15 Speech: Normal Motor strength normal: LUE, RUE, LLE, RLE Sensory: Normal - Psychological Associated symptoms: Normal affect, Normal mood - Skin Skin Temperature: Warm Skin Moisture: Dry Skin Color: Normal Course - Vital Signs Vital signs: Temp Pulse Resp BP Pulse Ox 98.0 F 110 H 20 134/81 H 98 03/31/20 15:39 03/31/20 15:39 03/31/20 15:39 03/31/20 15:39 03/31/20 15:39 - Laboratory Result Diagrams: 03/31/20 16:15 03/31/20 16:15 Laboratory results interpreted by me: 03/31/20 03/31/20 16:15 16:15 WBC 11.1 H RDW 14.8 H Urine Blood SMALL H - Diagnostic Test Radiology reviewed: Reports reviewed - DJD of thoracic back on CT scans. CT of neck within normal limits Discharge - Discharge Clinical Impression: Back pain Qualifiers: Back pain location: thoracic back pain Chronicity: chronic Back pain laterality: unspecified Qualified Code(s): M54.6 - Pain in thoracic spine; G89.29 - Other chronic pain DJD (degenerative joint disease) of thoracic spine Qualifiers: Spinal osteoarthritis complication: with radiculopathy Qualified Code(s): M47.24 - Other spondylosis with radiculopathy, thoracic region Condition: Good Disposition: HOME, SELF-CARE Additional Instructions: Follow-up with pain management [facility] and may see orthopedics Dr. Srinivas Killian. Return to ER as needed avoid bending lifting or twisting. May continue with TENS unit. Try pain medication muscle relaxers and Aleve or ibuprofen [id number] with food. Take doxycycline 1 tab daily to inhibit collagenase. Prescriptions: Doxycycline Monohydrate 100 mg PO DAILY #10 capsule Chlorzoxazone [Parafon Forte Dsc 500 Mg Tablet] 500 mg PO BID #20 tablet Forms: Return to Work
[2020-03-31] MEDS ORDERED: PROMETHAZINE HCL INJ 25 MG/1 ML VIAL IM ONE (20:06)
[2020-03-31] MEDS ORDERED: HYDROMORPHONE HCL INJ/PF 2 MG/ML AMPULE IM ONE (20:06)
[2020-03-31] MEDS ORDERED: DEXAMETHASONE SOD PHOS INJ 10 MG/1 ML VIAL IM ONE (20:07)
--- NOTE | 2020-03-31 20:33 | RADIOLOGY REPORT (SQ) ---
EXAM DESCRIPTION: Site: CT CERVICAL SPINE WITHOUT RP: CT CERVICAL SPINE WITHOUT IV CONTRAST CLINICAL HISTORY: 35 years Female; arm numbness; TECHNIQUE: Noncontrast cervical spine CT with sagittal and coronal reconstructions. All CT scans at this facility use dose modulation, iterative reconstruction, and/or weight based dosing when appropriate to reduce radiation dose to as low as reasonably achievable. COMPARISON: None FINDINGS: Alignment is anatomic. 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 There is no acute fracture of the cervical spine. No epidural hematoma. IMPRESSION: 1. No acute cervical spine fracture or subluxation.
--- NOTE | 2020-03-31 20:41 | RADIOLOGY REPORT (SQ) ---
EXAM DESCRIPTION: CT THORACIC SPINE WITHOUT RadLex: CT THORACIC SPINE WITHOUT IV CONTRAST CLINICAL HISTORY: 35 years Female; back pain; TECHNIQUE: Noncontrast thoracic spine CT with sagittal and coronal reconstructions. All CT scans at this facility use dose modulation, iterative reconstruction, and/or weight based dosing when appropriate to reduce radiation dose to as low as reasonably achievable. COMPARISON: None. FINDINGS: Alignment is anatomic. Partial calcification of the T6-T7, T7-T8, T8-T9 disc. No suspicious lytic or blastic lesions. No acute perivertebral edema. There is no acute fracture. Vertebral heights are preserved. No epidural hematoma. IMPRESSION: 1. No acute thoracic spine fracture or subluxation. 2. Mild degenerative disc changes in the midthoracic spine.
[2020-03-31 22:04] VITALS: BP 119/81
== END 2020-03-31 22:15 | disposition home or self-care (01) ==
LOC: ER 14:45
DX: M47.814 Spondylosis without myelopathy or radiculopathy, thoracic region (principal); M41.9 Scoliosis, unspecified; R20.0 Anesthesia of skin; R20.2 Paresthesia of skin; R19.4 Change in bowel habit; F17.210 Nicotine dependence, cigarettes, uncomplicated; Z79.899 Other long term (current) drug therapy; Z91.030 Bee allergy status; Z91.018 Allergy to other foods; Z20.828 Contact with and (suspected) exposure to other viral communicable diseases
CPT/HCPCS: 99285; 96374; 96375; 36415; 84443; 85025; 87635; 81025; 80053; 81001; 72070; 72125; 72128; J1170; J2550; J1100; C9803

== ENCOUNTER 2020-05-05 13:29 | Emergency (ER) | payer MEDICAID ==
[2020-05-05 13:56] VITALS: BP 137/79
[2020-05-05] MEDS ORDERED: OXYCODONE-ACETAMINOPHEN 5-325 MG TABLET PO ONE (14:02)
[2020-05-05] MEDS ORDERED: DEXAMETHASONE SOD PHOS INJ 10 MG/1 ML VIAL IV ONE (14:02)
[2020-05-05] MEDS ORDERED: KETOROLAC TROMETHAMINE 60 MG/2 ML SDV IM ONE (14:02)
--- NOTE | 2020-05-05 14:09 | ER Document Report ---
ED General Pain - General Stated Complaint: BACK PAIN Time Seen by Provider: 05/05/20 13:49 Primary Care Provider: MARIA DEL ROSARIO MEDINA DO [ACTIVE STAFF] - Follow up as needed Mode of Arrival: Wheelchair Information source: Patient, Relative Notes: Patient is a 35-year-old female returns emergency room with continued complaint of upper back pain. Patient states that since she was here last on April 05 she has seen a [facility] and placed her on a couple of medications. She states these medications were not working. She is here today with complaint of increasing pain. She denies any new or recent traumas. This is an acute exacerbation of her chronic pain. Patient is diligently trying to get into pain management but they keep running into her lungs. Patient denies as stated any no known traumatic events. She has no loss of urine or stool. She has no loss of sensation. Current medications are duloxetine 20 mg daily and chlorzoxazone 500 mg twice daily. She states that that these do not seem to be working any longer. TRAVEL OUTSIDE OF THE [place] IN LAST 30 DAYS: No - HPI Onset: Other - Acute exacerbation chronic pain past week Onset/Duration: Gradual Quality of pain: Achy Severity: Moderate Pain Level: 3 Context: Chronic problem Typical of prior episodes of painful crisis: Yes Associated symptoms: None Exacerbated by: Sitting, Standing, Movement Relieved by: Denies Similar symptoms previously: Yes Recently seen / treated by doctor: Yes - Related Data Allergies/Adverse Reactions: Bee stings Allergy (Severe, Uncoded 05/05/20 14:43) Hives, swelling cherries Allergy (Uncoded 05/05/20 14:43) hives/itch, throat closes Past Medical History - General Information source: Patient - Social History Smoking Status: Current Every Day Smoker Cigarette use (# per day): Yes Chew tobacco use (# tins/day): No Smoking Education Provided: Yes Frequency of alcohol use: None Drug Abuse: None Lives with: Family Family History: Reviewed & Not Pertinent, Malignancy - Strong family history breast cancer - Past Medical History Cardiac Medical History: Denies: Hx Coronary Artery Disease, Hx Heart Attack, Hx Hypertension - Low Pulmonary Medical History: Denies: Hx Asthma, Hx Bronchitis, Hx COPD, Hx Pneumonia Neurological Medical History: Reports: Hx Migraine. Denies: Hx Cerebrovascular Accident, Hx Seizures Renal/ Medical History: Reports: Hx Ovarian Cysts. Denies: Hx Peritoneal Dialysis Musculoskeletal Medical History: Denies Hx Arthritis, Reports Hx Fibromyalgia Past Surgical History: Reports: Hx Breast Surgery - L lumpectomy, Hx Section - x 2, Hx Cholecystectomy, Hx Gynecologic Surgery - LEEPx4, Hx Oral Surgery - wisdom teeth, Hx Tonsillectomy, Hx Tubal Ligation - Immunizations Immunizations up to date: Yes Hx Diphtheria, Pertussis, Tetanus Vaccination: Yes - 2016 Review of Systems - Review of Systems Constitutional: No symptoms reported EENT: No symptoms reported Cardiovascular: No symptoms reported Respiratory: No symptoms reported Gastrointestinal: No symptoms reported Genitourinary: No symptoms reported Female Genitourinary: No symptoms reported Musculoskeletal: See HPI, Back pain Skin: No symptoms reported Hematologic/Lymphatic: No symptoms reported Neurological/Psychological: No symptoms reported -: Yes All other systems reviewed and negative Physical Exam - Vital signs Vitals: Temp Pulse Resp BP Pulse Ox 98.3 F 99 16 137/79 H 98 05/05/20 13:54 05/05/20 13:54 05/05/20 13:54 05/05/20 13:54 05/05/20 13:54 Interpretation: Hypertensive - Notes Notes: PHYSICAL EXAMINATION: GENERAL: Patient is a well-nourished well-developed 35-year-old female though no apparent distress is uncomfortable appearing. Patient is somewhat teary on examination. HEAD: Atraumatic, normocephalic. EYES: Pupils equal round and reactive to light, extraocular movements intact, conjunctiva are normal. ENT: Nares patent, oropharynx clear without exudates. Moist mucous membranes. NECK: Normal range of motion, supple without lymphadenopathy LUNGS: Breath sounds clear to auscultation bilaterally and equal. No wheezes rales or rhonchi. HEART: Regular rate and rhythm without murmurs Musculoskeletal: Examination patient's her concern is her upper back. This pain and discomfort is in the midthoracic area. Also has some radiation down both arms. Patient displays good hose wrapper strength bilaterally. She has full range of motion of the upper extremities. She has a difficult time finding a position of comfort by leaning forward she gets some relief. She has good DTRs in the upper extremities. Vascular examination is also normal with bilateral radial and ulnar pulses 2+ and cap refill of fingers normal. Patient has good strength and shoulder shrugs. Examination of the lower back also is normal at this point negative straight leg raise is good DTRs good vascular exam. Patient has good sensation of the lower extremities from her inner ankles to her groin as she does from her outer ankles to her thighs. No sign of saddle paresthesia. NEUROLOGICAL: . Normal speech, normal gait. Normal sensory, motor exams PSYCH: Normal mood, normal affect. SKIN: Warm, Dry, normal turgor, no rashes or lesions noted. Course - Re-evaluation Re-evalutation: 05/05/20 14:09 Patient's presentation is an exacerbation of her chronic pain. She does appear to be drying and attempting to get into pain management. She has denied any new traumatic events and no neurologic deficits are noted. At this time and had no further work-up and ER needs to be achieved. She is seeing Dr. Medina at a surgical center hearing locally. She is attempted to contact him but states he has not called back yet and she cannot deal with the pain anymore. I had a talk with patient we will attempt to give her a steroid shot Toradol shot and I will place her on some Neurontin as well. Patient states she was on Neurontin about 5 years ago so we will radiate started once again. Patient is in agreement with attempting this. - Vital Signs Vital signs: Temp Pulse Resp BP Pulse Ox 98.3 F 99 16 137/79 H 98 05/05/20 13:54 05/05/20 13:54 05/05/20 13:54 05/05/20 13:54 05/05/20 13:54 - Laboratory Results Critical Laboratory Results Reviewed: No Critical Results - Radiology Results Critical Radiology Results Reviewed: No Critical Results Discharge - Discharge Clinical Impression: Thoracic radiculopathy Thoracic back pain Qualifiers: Chronicity: chronic Back pain laterality: bilateral Qualified Code(s): M54.6 - Pain in thoracic spine Condition: Stable Disposition: HOME, SELF-CARE Instructions: Radiculopathy ([facility]) Additional Instructions: As we discussed there is really no sense with no new trauma and you are already seeing specialist in the area there is little more we can perform ER besides trying some chemical manipulations to help make you feel better. As we discussed I am going to place you on a high-dose steroid taper I will place you on some gabapentin which will help with neuropathic pain and you can continue your other medications. Highly recommend that you contact your primary care provider and/or the surgeon to see if they can expedite you to getting into pain management. Should you have any concerns or problems should you have loss of urine or stool or any concerns of loss of feeling return to ER for reevaluation. Prescriptions: Gabapentin 300 mg PO ASDIR #50 capsule Prednisone 10 mg PO ASDIR 6 Days #1 tab.ds.[id number] Referrals: MARIA DEL ROSARIO MEDINA, [ACTIVE STAFF] - Follow up as needed
[2020-05-05] MEDS ORDERED: HYDROCODONE/ACETAMINOPHEN 5-325 MG (6 TAB/ER DISP) PO PRN (14:21)
[2020-05-05] MEDS ORDERED: DEXAMETHASONE SOD PHOS INJ 10 MG/1 ML VIAL IM ONE (14:39)
== END 2020-05-05 15:33 | disposition home or self-care (01) ==
LOC: ER 13:29
DX: G89.29 Other chronic pain (principal); M54.14 Radiculopathy, thoracic region; M54.6 Pain in thoracic spine; F17.210 Nicotine dependence, cigarettes, uncomplicated
CPT/HCPCS: 99284; 96372; J1885; J1100